=== PATIENT | female | born 1955 | race Caucasian/White ===

== ENCOUNTER 2016-11-07 15:15 | Inpatient (IN) | payer BC ==
[~2016-11-07] VITALS: Ht 175.3 cm; Wt 116.3 kg
--- NOTE | ~2016-11-07 | DS ---
PATIENT'S NAME: SAAD DUNN [facility] AGE: 61 Y [address] ROOM: [address] [address] LOCATION: [facility] ADMIT DATE: 11/07/2016 Discharge Summary DISCHARGE DATE: 11/10/2016 FAMILY PHYSICIAN: Irving Cordero MD ATTENDING PHYSICIAN: Sonu Hay ADMISSION MAIN DIAGNOSIS: Brain tumor (anterior corpus callosum, bilateral frontal lobes). DISCHARGE MAIN DIAGNOSIS: Brain tumor (anterior corpus callosum, bilateral frontal lobes). PROCEDURES DURING ADMISSION: Right frontal campos hole and stereotactic biopsy of brain tumor. COMPLICATIONS DURING ADMISSION: None. DISCHARGE INSTRUCTIONS AND FOLLOWUP APPOINTMENTS: 1. Myself on 11/20/2016, for staple removal. 2. Call my office or seek immediate medical attention if having increasing headache, vomiting, nausea, or any new neurologic symptoms. 3. The patient may wash her head on postoperative day 5. MEDICATIONS ON DISCHARGE: 1. Resume all pre-admission medications except ibuprofen. 2. Dexamethasone 3 mg p.o. t.i.d. 3. Zofran 4-8 mg p.o. every 8 hours p.r.n. 4. Tramadol 50 to 100 mg p.o. every 6 hours p.r.n. 5. Keppra 500 mg p.o. b.i.d. HOSPITAL COURSE: The patient is a 61-year-old female patient, who was admitted to the hospital after a noncontrast CT head showed evidence of large anterior corpus callosum and bilateral frontal lobes brain tumor. 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 The patient was started on dexamethasone. The patient then underwent the above-mentioned surgery to confirm the diagnosis. The preliminary pathology assessment was consistent with high-grade glioma. The patient tolerated the operation very well. She had no new neurologic deficits. On the day of discharge, the patient was examined. She remained neurologically intact. She was complaining of mild surgical pain. Her incision was healing very well. She also had postoperative CT scan and that showed satisfactory biopsy result and a small amount of intraventricular hemorrhage in the right lateral ventricle close to the tumor. I reviewed the PATIENT'S NAME: SAAD DUNN [facility] AGE: 61 Y [address] ROOM: [address] [address] LOCATION: [facility] ADMIT DATE: 11/07/2016 Discharge Summary DISCHARGE DATE: 11/10/2016 FAMILY PHYSICIAN: Irving Cordero MD ATTENDING PHYSICIAN: Sonu Hay discharge instructions with the patient. Based on my assessment today, I think this patient can be discharged home today. MD YAMILETH ROWLAND/leatha /[id number] CC: Omari Dennison MD, PhD MD Irving Russo MD d: 11/11/16 0432 t: 11/11/16 1157, DISCHARGE SUMMARY
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
--- NOTE | ~2016-11-07 | HP ---
[facility] 61 Y [address] ROOM: [place] [address] LOCATION: [facility] ADMIT DATE: 11/07/2016 History & Physical DISCHARGE DATE: FAMILY PHYSICIAN: Irving Cordero MD ATTENDING PHYSICIAN: CARSON EID DATE OF SERVICE: 11/07/2016 CHIEF COMPLAINT: Brain tumor, confusion. HISTORY OF PRESENT ILLNESS: The patient is a 61-year-old, right-handed female patient, who was assessed at [place] [facility] today for feeling unwell. The patient had a noncontrast CT head and that revealed evidence of bilateral frontal lobe edema due to abnormal mass in the anterior part of the corpus callosum. I was contacted and reviewed the imaging. I recommended transferring the patient over for further investigations and management. I met the patient in the key. She was accompanied by her family. The patient indicated that she has been feeling unwell for about a week. She denied headaches, visual disturbances, weakness in her hands, feet, seizures, nausea, or vomiting. She never experienced similar symptoms before. She denied unsteady gait, falls. She denied fever, chills. PAST MEDICAL AND SURGICAL HISTORY: History of uterine cancer for which she had surgery and postoperative radiation. MEDICATIONS: Listed in the patient's chart. ALLERGIES: SULFA. SOCIAL HISTORY: The patient is and lives in [place]. She denies smoking and alcohol drinking. FAMILY HISTORY: Noncontributory to the patient's presentation. REVIEW OF SYSTEMS: All points review of systems were asked about. Pertinent positives were mentioned in the HPI. PATIENT'S NAME: SAAD DUNN [facility] AGE: 61 Y [address] ROOM: [place] [address] LOCATION: [facility] ADMIT DATE: 11/07/2016 History & Physical DISCHARGE DATE: FAMILY PHYSICIAN: Irving Cordero MD ATTENDING PHYSICIAN: CARSON EID PHYSICAL EXAMINATION: GENERAL: The patient is cooperative and pleasant. HEENT: atraumatic. Sclerae are normal. NECK: She has painless range of motion. No tenderness to palpation. RESPIRATORY: She is not in any respiratory distress. CARDIOVASCULAR: She has palpable pulses in the upper extremities. GAIT: Not done. BACK: Not done. MUSCULOSKELETAL: She has no evidence of muscle wasting. NEUROLOGIC: She is alert and oriented to time, place, and person. She follows 1 and 2 step commands. Pupils are 3 mm and reactive. Face is symmetric. She has no evidence of pronator drift. Cerebellar examination including [id number]-[id number] testing is negative. Sensory examination of the upper and lower extremities is unremarkable. IMAGING STUDIES: Investigations: A noncontrast CT head done in [place] which I personally reviewed. It showed evidence of heterogeneous mass centered in the genu of the corpus callosum and involving the right and left frontal lobes, and causing significant vasogenic edema in the frontal lobes, more on the left side. The imaging features are very concerning for primary brain tumor, high- grade glioma (butterfly glioblastoma). IMPRESSION AND PLAN: A 61-year-old female patient is presenting with 1-week history of feeling unwell, was found on CT scan to have heterogeneous mass in the genu of the corpus callosum causing significant vasogenic edema in the frontal lobes. The imaging features are concerning for high-grade glioma. Plan: 1. Dexamethasone 10 mg loading dose, then 4 mg every 6 hours. 2. MRI brain without and with contrast to better assess the tumor. I reviewed the imaging with the patient and her family and pointed out the abnormalities seen. I then discussed the different pathologies that may have similar radiologic features. I then discussed my plan with them. I will meet with the patient again after the MRI is completed to further discuss treatment options. It was pleasure taking care of this patient and thanks for having us involved. CARSON EID MD PATIENT'S NAME: SAAD DUNN [facility] AGE: 61 Y [address] ROOM: [place] [address] LOCATION[facility] ADMIT DATE: 11/07/2016 History & Physical DISCHARGE DATE: FAMILY PHYSICIAN: Irving Cordero MD ATTENDING PHYSICIAN: CARSON EID/leatha /[id number] CC: Irving Cordero MD D: [id number] T: [id number] HISTORY & PHYSICAL
--- NOTE | ~2016-11-07 | OR ---
PATIENT'S NAME: SAAD DUNN [facility] AGE: 61 Y [address] ROOM: [place] [address] LOCATION: [facility] ADMIT DATE: 11/07/2016 OR/Procedure Report DISCHARGE DATE: FAMILY PHYSICIAN: Irving Cordero MD ATTENDING PHYSICIAN: SONU HAY SURGEON: Sonu Hay MD TRANSPORTATION AGENT: DATE OF PROCEDURE: 11/09/2016 ANESTHESIOLOGIST: Naresh Cook M.D. ANESTHESIA: General. COMPLICATIONS: None. ESTIMATED BLOOD LOSS: Minimal. PREOPERATIVE DIAGNOSIS: Corpus Callosum/Bifrontal brain tumor. POSTOPERATIVE DIAGNOSIS: Corpus Callosum/Bifrontal brain tumor. PROCEDURE: Stealth-guided right frontal bur hole and stereotactic biopsy of Corpus Callosum/bifrontal brain tumor. CLINICAL HISTORY: The patient is a 61-year-old female patient who was diagnosed on a CT scan and then MRI to have a very large enhancing brain tumor centered in the corpus callosum and the mesial aspect of the frontal lobes with features consistent with a high-grade glioma. The patient was admitted and started on dexamethasone. I discussed the treatment options. I recommended stereotactic biopsy to confirm the diagnosis. I discussed the procedure itself, the benefits, and all the risks associated with it. The patient was interested in proceeding with surgery, so she was brought in for the operation. DESCRIPTION OF PROCEDURE: The patient was seen in the preoperative care unit and the correct side was marked. Then, she was transferred to the main operating theater, was given general anesthetic, and underwent endotracheal intubation without complications. Preoperative antibiotics, steroids were given. Calf compressors were used throughout the procedure. The patient was then positioned supine on the table and all her joints and bony prominences were securely padded. The patient's head was clamped in 3 pins Campbell and secured to the table. Then, the patient was registered to the [employer] navigation system with good accuracy. I then navigated the entry point on the right frontal scalp and based on that, a linear incision was marked. Hair overlying it was clipped off. The surgical site was prepped and draped. PATIENT'S NAME: SAAD DUNN [facility] AGE: 61 Y [address] ROOM: [place] [address] LOCATION: [facility] ADMIT DATE: 11/07/2016 OR/Procedure Report DISCHARGE DATE: FAMILY PHYSICIAN: Irving Cordero MD ATTENDING PHYSICIAN: SONU HAY The proposed skin incision was infiltrated with 0.25% Marcaine with epinephrine. Skin was sharply opened down to the bone, then a high-speed Midas Srinivasan drill was brought in and one bur hole was fashioned down to the dura. The dura was opened and coagulated. The frontal lobe cortex was coagulated and incised. Then, using the [employer] Navigus stereotactic biopsy system, the trajectory was confirmed. Then, a stealth-guided stereotactic biopsy needle was inserted under the guidance of Stealth Navigation System to the target point. Then, multiple specimens were obtained and those were sent out for frozen section. Later on, I was called by the pathologist and he confirmed obtaining neoplastic tissue with features consistent with a high- grade glioma. I had no complications during the biopsy. I was satisfied with the diagnosis. Further specimens were obtained and sent out for permanent pathological analysis. The biopsy needle and the Navigus system were removed without complications. Gel-Foam was placed in the bur hole. The bur hole was covered with titanium plate and screws. The wound was irrigated with bacitracin-containing irrigation. The wound was then closed in layers with 2- 0 Vicryl to the galea and sai to the skin. Sterile dressing was applied. At the end of the operation, the instrument and sponge counts were correct. The patient tolerated the operation without complications. SONU HAY MD AB/modl /[id number] CC: Irving Cordero MD d: 11/10/16 0232 t: 11/10/16 1446, OPERATIVE SUMMARY
--- NOTE | ~2016-11-07 | CON ---
PATIENT'S NAME: SAAD GARCIA [facility] AGE: 61 Y [address] ROOM: [address] [place], [place] [address] LOCATION: [facility] ADMIT DATE: 11/07/2016 Consultation DISCHARGE DATE: 11/10/2016 FAMILY PHYSICIAN: Irving Cordero MD ATTENDING PHYSICIAN: Sonu Hay REFERRING PHYSICIAN: Jodi Walter MD Consult to Dr. Rosa Hay. Saad Garcia is a 61-year-old woman with an uncharacterized brain mass. The history of present illnessis obtained from Mrs. Garcia who is a good historian; Mr. Garcia and their daughter; and review of the [facility] record. Mrs. Garcia was in her normal state of health until 2-3 months ago, early 2016. She lived in [place], [place] with her . 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 She had no formal exercise program, but no formal limits. In early 2016, the patient developed progressive fatigue. She was still able to discharge her responsibilities at work, but was less likely to do the housework by the time was admitted to the hospital. Two and a half weeks ago, the family noted that she was "not tracking well." When they would visit with her, she would not respond and acted like she had not heard the questions. Five days prior to admission, on or around 11/01/2016, the patient had difficulty standing because her legs were weak. She had no focal weakness. The patient experienced no falls and did work. 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 Mrs. Garcia's found her early a.m. on 11/07/2016. The patient needed standby assist at that point, although she had been able to take care of herself and work up to 11/06/2016. The patient was transported to the [facility]. Dr. Elizabeth saw the patient and documented the presence of bilateral frontal lobe edema due to a mass in the anterior part of the corpus callosum with a head CAT scan. Dr. Hay took the patient in transfer and hospitalized her on 11/07/2016. Upon admission, the white count was 9700, the hemoglobin 13.4, the MCV was 90, and the platelets were 228,000. The patient had 79% neutrophils and 13% lymphocytes. The general chemical profile was just remarkable for a sodium of 146 mg/dL and a potassium of 3.4 mg/dL. An MRI of the brain revealed a 5.5 cm enhancing mass centered in the anterior aspect of the corpus callosum extending into both frontal lobes. Multiple additional smaller areas of enhancement were present involving the body of the corpus callosum more PATIENT'S NAME: SAAD GARCIA [facility] AGE: 61 Y [address] ROOM: [address] [address] [place] [facility] [place] ADMIT DATE: 11/07/2016 Consultation DISCHARGE DATE: 11/10/2016 FAMILY PHYSICIAN: Irving Cordero MD ATTENDING PHYSICIAN: Sonu Hay posteriorly as well as the posterior frontal lobe. Extensive adjacent edema was present. Local mass effect was present with effacement of adjacent cortical sulci and effacement of the frontal horns of the lateral ventricles. There was no associated hemorrhage or hydrocephalus. The findings were compatible with glioblastoma multiforme. Dr. Hay initiated dexamethasone and the patient's symptoms, such as they were, have improved. Dr. Hay took the patient to the surgical suite on 11/09/2016 and performed a stealth-guided right frontal campos hole and stereotactic biopsy of bifrontal brain tumor. The pathology is pending. Mrs. Garcia has a history of endometrial cancer which was first symptomatic with uterine bleeding in 2012. The patient believes the uterine cancer was endometrial carcinoma, endometrioid type. She recalls the tumor was stage I. She does not recall the grade of the tumor. She recalls Dr. Mira Rodrigez performed a total abdominal hysterectomy and bilateral salpingo-oophorectomy for this in the summer of 2012. The patient then received adjuvant external beam radiation and endovaginal radiation therapy as well. The patient has undergone surveillance exams with Dr. Rodrigez and now needs these once every 6 months. The patient's appetite has fallen for 1-1/2 weeks and she estimates she has lost 20 pounds. She has also developed mild urinary incontinence over the last 2 weeks. ACTIVE MEDICAL PROBLEMS, CHRONIC AND DIAGNOSED: 1. Early left cataract. 2. Class II obesity. The BMI 38.2 kg/m2. 3. 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 4. Tobacco use, and the patient smoked 1-1/2 pack per day of cigarettes for 30 years, but has abstained since 1997. ACUTE MEDICAL ILLNESSES (RESOLVED), PAST SURGERIES, INJURIES: 1. 1963, tonsillectomy. 2. 4132-1661: G2, P2, AB0. 3. 1985-hospitalization with preeclampsia. 4. 2012-uterine cancer, exact histology and stage currently unknown to us. This is probably a uterine adenocarcinoma. The patient reported with vaginal bleeding and was evaluated by Agnes Cordero APRN. Dr. Mira Rodrigez performed a total abdominal hysterectomy and bilateral salpingo- oophorectomy. The patient believes she had stage I disease, but the grade is indeterminate. She received adjuvant external beam radiation and endovaginal radiation. MEDICATIONS: PATIENT'S NAME: SAAD GARCIA [facility] AGE: 61 Y [address] ROOM: [place] [address] LOC[place] [facility] [place] ADMIT DATE: 11/07/2016 Consultation DISCHARGE DATE: 11/10/2016 FAMILY PHYSICIAN: Irving Cordero MD ATTENDING PHYSICIAN: Sonu Hay Upon admission, none. Medications at present: 1. Dexamethasone 1 mg p.o. t.i.d. 2. Docusate sodium 100 mg p.o. daily. 3. Famotidine 20 mg daily. 4. Probiotic 1 cap every daily. 5. Levetiracetam 500 mg p.o. b.i.d. 6. Ondansetron 4 mg p.o. every 8 hours. 7. Tramadol 50 mg every 6 hours. ADVERSE REACTIONS TO MEDICATIONS, TRANSFUSIONS, ALLERGIES: Sulfa leads to "anaphylaxis." TOBACCO: 1 pack per day for 30 years, quit for 25 years. ALCOHOL: 6 packs a week. CAFFEINE: 32 ounces of tea per day. FAMILY HISTORY: The patient was adopted. SOCIAL HISTORY: The patient was born in [place], [place], but was raised an [facility]. Following graduation, she attended [employer] for a year and a half. 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 They . They have a son in [place], [place] and a daughter in [place], [place]. They are members of the [employer]. REVIEW OF SYMPTOMS: 1. The patient has a bowel movement every 3 days, they are hard. There has been no change in her bowel habits for a decade. She has never had a colonoscopy. 2. Tachypalpitations for 5 years. She has had no associated symptoms and she has not visited with Dr. Cordero about this to the point where procedures have been scheduled. PHYSICAL EXAMINATION: VITAL SIGNS: Pulse 68 and regular, blood pressure 100/55, respiratory rate 14, temperature 98.2, and SpO2 94% on room air. Height 69 inches, weight PATIENT'S NAME: SAAD GARCIA [facility] AGE: 61 Y [address] ROOM: [place] [address] LOC[place]: [facility] [place] ADMIT DATE: 11/07/2016 Consultation DISCHARGE DATE: 11/10/2016 FAMILY PHYSICIAN: Irving Cordero MD ATTENDING PHYSICIAN: Sonu Hay 117.5 kg (259 pounds). BMI 38.2 kg/m2. GENERAL: Well-developed, obese, 61-year-old female, in no acute distress. HEENT: A healed scar over the right frontal lobe. Lymph nodes not palpable. NECK: Without JVD or carotid bruits. CHEST: Clear. CV: Regular rhythm. No murmurs, bruits, or adventitious sounds. BREASTS: Not examined. ABDOMEN: No masses, tenderness, or megaly. Garcia angiomas in place. GENITALIA: Not examined. RECTAL: Not examined. EXTREMITIES: Upper extremities without peripheral edema. Compression devices present. IMPRESSION: 1. A 61-year-old female with a 3-month history of fatigue, then inappropriate and unusual behavior, then mild disequilibrium with a 5.5 cm bifrontal mass in the corpus callosum with extensive adjacent edema, etiology indeterminate. 2. This is probably a primary glioblastoma multiforme, but we need to keep the patient's endometrial cancer in mind as well. 3. The patient does not need to be in the hospital, but our further diagnostic and therapeutic regimens recommendations will depend wholly on the tissue. RECOMMEND: Diagnostic: 1. Return to see Dr. Larson or Dr. Walter on 11/20/2016 when the biopsy results should be in hand. 2. No other diagnostic tests at this point. Treatment: 1. Continue dexamethasone at a tapering dose. 2. Continue other medications. Patient education: 1. Made the point that our impressions and recommendations as well as her prognosis will depend on the tissue. 2. Discussed the differential diagnosis which includes a primary brain tumor, metastatic endometrial cancer, and possibly a new tobacco-related cancer. We did not talk about potential treatments for each of the possibilities as most of the topics we covered would be moot. 3. Made arrangements for her to return to our office on 11/20/2016. PATIENT'S NAME: SAAD GARCIA [facility] AGE: 61 Y [address] ROOM: [place] [address] [place] [facility] [place] ADMIT DATE: 11/07/2016 Consultation DISCHARGE DATE: 11/10/2016 FAMILY PHYSICIAN: Irving Cordero MD ATTENDING PHYSICIAN: Sonu Hay MD GKB/modl /[id number] CC: MD Irving Downing MD Fishel Z Liberman, MD, PhD d: 11/10/160 t: 11/15/16 1324, CONSULTATION REPORT
[2016-11-07] MEDS ORDERED: MOTRIN600 MG PO (17:13)
[2016-11-07] MEDS ORDERED: COLACE100 MG PO (17:13)
[2016-11-07 17:14] LABS: BASOPHIL % 0.4 %; EOSINOPHIL % 0.1 %; HEMATOCRIT 41.1 % (33.0-46.0); HEMOGLOBIN 13.4 g/dL (10.0-15.0); IMMATURE GRANULOCYTE % 0.4 %; LYMPHOCYTE # 1.3 K/uL (0.8-4.0); LYMPHOCYTE % 13.3 %; MCH 29.5 pg (27.0-34.0); MCHC 32.6 gm/dL (32.0-36.5); MCV 90.5 fl (83.0-98.0); MONOCYTE # 0.7 K/uL (0.0-1.0); MPV 8.8 fl (9.4-12.4); NEUTROPHIL # (ANC) 7.6 K/uL (1.8-7.8); NEUTROPHIL % 78.8 %; NRBC % 0 /100WBC (0-0.00); PLATELET COUNT 228 K/uL (150-450); RBC 4.54 M/uL (3.50-5.50); RDW-CV 13.1 % (11.9-14.6); WBC 9.7 K/uL (4.0-11.0)
[2016-11-07] MEDS ORDERED: PROBIOTIC1 EACH PO (17:14)
[2016-11-07 17:23] LABS: PROTIME 10.7 SECONDS (9.6-11.1); PTT 24 SECONDS (25-32)
[2016-11-07 17:30] LABS: ALBUMIN 3.7 gm/dL (3.5-5.0); ALK PHOS 88 IU/L (33-138); ALT 35 IU/L (12-78); ANION GAP 11.4 (10.0-19.0); AST 32 IU/L (10-40); BLOOD UREA NITROGEN 19 mg/dL (6-24); CALCIUM 8.8 mg/dL (8.5-10.5); CHLORIDE 108 mMol/L (96-110); CO2 30 mMol/L (22-32); CREATININE 0.9 mg/dL (0.5-1.1); POTASSIUM 3.4 mMol/L (3.7-5.1); TOTAL BILIRUBIN 0.7 mg/dL (0.0-1.5); TOTAL PROTEIN 7.5 g/dL (6.0-8.4)
[2016-11-07 17:49] LABS: SODIUM 146 mMol/L (135-145)
[2016-11-07 17:52] LABS: ESTIMATED GFR (MDRD EQUATION) > 60
--- NOTE | 2016-11-07 19:06 | NUR ---
PATIENT DIRECT ADMIT AT 16:15 TO PCU. PATIENT HAS NO C/O PAIN. PATIENT HAS SHORT TERM MEMORY DEFICIT AND GENERALIZED WEAKNESS, ESPECIALLY WHEN ATTEMPTING TO STAND. VITALS STABLE, SATS HIGH 90'S ON RA. FAMILY AT BEDSIDE, ASSISTING WITH OBTAINING PATIENT'S MEDICAL HISTORY. REVIEWED CALL LIGHT WITH PATIENT AND FAMILY, REINFORCED NOT TO GET OUT OF BED WITHOUT ASSISTANCE FROM STAFF.
--- NOTE | 2016-11-08 04:16 | NUR ---
Significant Event: Patient's VSS on RA. A/Ox3 but does have some kind of delay. When asked to do something, patient will space out at times. She will respond that she will do what you ask, but will just stare. When patient was up to the bathroom, she was having difficulty standing up. Stating that her feet felt like they were asleep. Family said she has been spacey the past 8 or 9 days. Does not usually have difficulty standing up from bathroom, but did have difficulty at home this morning getting up from toilet. MRI done twice due to IV contrast infiltration from first MRI, patient did not receive any contrast into her vasculature the first time, so test had to be repeated. Results not yet posted. New IV started in R) antecubital. Flushes well with good blood return. Follow up: Continue plan of care.
--- NOTE | 2016-11-08 16:52 | NUR ---
Significant Event: AOx3, slow to respond. Agrees and/or states she will do something but then doesn't move to do it. Pleasant and cooperative. SBP 110s-130s, temp to 99.1 x1, room air. Lungs had fine crackles this a.m. and cleared this afternoon after being up to shower. Incontinent of urine, though also has verbalized needing to use restroom. SL to R) AC is patent. Lots of family visiting today. Follow up: Plan for biopsy in a.m. with Dr Hay, NPO at midnight. IV fluids to be started at midnight.
--- NOTE | 2016-11-09 04:30 | NUR ---
Significant Event: Patient A/Ox3. VSS on RA. Patient appears to be doing better this shift. No issues standing up off of the toilet today. Quicker to respond to requests to do things. Dr. Hay did call to say that the biopsy was moved to 1700, so patient is not NPO until 0800 and NS should be started at 75ml/hr at that time. Patient was informed and will order breakfast right at 0700. Follow up: Biopsy this afternoon.
--- NOTE | 2016-11-09 13:38 | NUR ---
Introduced self and care management services to patient, spouse and daughter at bedside. Lives in [place]. Too soon to know what dc needs will be, hoping will just be able to go home on discharge and not need anything. Cooker [employer]rup will follow and assist with dc planning as needs identified.
--- NOTE | 2016-11-09 15:56 | NUR ---
Significant Event: AOx3, slow to respond at times, does express humor today. Stands much easier with minimal assist, steady on feet. Strength equal bilat. SBP 110s-150s, VS otherwise WNL on RA. Ate breakfast, then NPO since 0800 for surgery at 1700. Incontinent of urine but also occasionally voices need to void. PIV to L) AC infusing without complication. Very pleasant and cooperative. Family at bedside is supportive. Follow up: Per plan of care post-op.
--- NOTE | 2016-11-10 04:35 | NUR ---
Significant Event: Patient alert and oriented x 3. Denies pain, numbness, tingling, or change in vision. Moves spontaneously and to command. PERRL. Equal and strong strengths. 2+ pulses. NSR. Goal for SBP < 140. On room air. Lungs clear. Voids without difficulty. Bowel sounds active. SBA, gait belt. Has tolerated liquids. IV to left forearm infusing NS at 75 mL/hr without difficulty-may SL when PO well. IV to right AC SL with no complications. Pleasant and cooperative with cares. Daughter at bedside. Afebrile. SCDs in place. Dressing to head dry and intact. Glasses at bedside. Follow up: NVS Q2H, CT of head this AM, home today
[2016-11-10] MEDS ORDERED: KEPPRA500 MG PO (09:48)
[2016-11-10] MEDS ORDERED: PEPCID20 MG PO (09:48)
[2016-11-10] MEDS ORDERED: TYLENOL325 MG PO (09:49)
[2016-11-10] MEDS ORDERED: DECADRON1 MG PO (09:50)
[2016-11-10] MEDS ORDERED: ZOFRAN4 MG PO (09:51)
[2016-11-10] MEDS ORDERED: ULTRAM50 MG PO (09:51)
--- NOTE | 2016-11-10 14:31 | NUR ---
ALL BELONGINGS GATHERED AND SENT WITH PATIENT. IV'S DC'D. DISCHARGE INFO REVIEWED WITH PATIENT, , AND DAUGHTER. NO FURTHER QUESTIONS AT THIS TIME. TAKEN TO FRONT LOBBY BY JEVON.
--- NOTE | 2016-11-20 12:27 | NUR ---
Post discharge follow up. Visited with patient while at [facility] for radiation consult. Patient doing well. No questions or concerns at this time.
== END 2016-11-10 14:23 | disposition disaster alternative care site (69) | DRG 54 ==
LOC: GPCU 15:48 → GNTU 11-09 21:06
PROVIDERS: ADMIT Neurological Surgery
PROC: 00B73ZX Excision of Cerebral Hemisphere, Percutaneous Approach, Diagnostic (ICD-10-PCS; principal; 2016-11-10)
DX: C71.0 Malignant neoplasm of cerebrum, except lobes and ventricles (principal); G93.6 Cerebral edema; C71.1 Malignant neoplasm of frontal lobe; D49.6 Neoplasm of unspecified behavior of brain; R41.0 Disorientation, unspecified; W19.XXXA Unspecified fall, initial encounter; Z92.3 Personal history of irradiation; Z87.891 Personal history of nicotine dependence; Z85.42 Personal history of malignant neoplasm of other parts of uterus
CPT/HCPCS: A9577; C1713; C1751; J0690; J1100; J2250; J2405; J7030

== ENCOUNTER → 2017-02-19 | Outpatient (CLI) | payer BC ==
[~2017-02-19] MED LIST: COLACE100 MG PO; DECADRON1 MG PO; KEPPRA500 MG PO; MOTRIN600 MG PO; PEPCID20 MG PO; PROBIOTIC1 EACH PO; TYLENOL325 MG PO; ULTRAM50 MG PO; ZOFRAN4 MG PO
== END | disposition disaster alternative care site (69) ==
LOC: GRAD 11:00
DX: M79.1 Myalgia (principal); C71.1 Malignant neoplasm of frontal lobe; C71.8 Malignant neoplasm of overlapping sites of brain; E66.01 Morbid (severe) obesity due to excess calories; W19.XXXA Unspecified fall, initial encounter

== ENCOUNTER → 2017-02-24 | Outpatient (CLI) | payer BC | END | disposition disaster alternative care site (69) | LOC: GRAD 14:57 | DX: C71.1 Malignant neoplasm of frontal lobe (principal); C71.8 Malignant neoplasm of overlapping sites of brain; E66.01 Morbid (severe) obesity due to excess calories; I51.7 Cardiomegaly; R51 Headache ==

== ENCOUNTER 2017-02-26 11:16 | Inpatient (IN) | payer BC ==
[~2017-02-26] VITALS: Ht 177.8 cm; Wt 126.8 kg
--- NOTE | ~2017-02-26 | ER ---
PATIENT'S NAME: SAAD DUNN [facility] AGE: 61 Y [address] ROOM: [place] [address] LOCATION: [facility] ADMIT DATE: 02/26/2017 ER/Outpatient Report DISCHARGE DATE: FAMILY PHYSICIAN: Irving Cordero MD ATTENDING PHYSICIAN: CARSON HAY TIME OF ARRIVAL: 11:16. TIME SEEN: 11:45. IDENTIFICATION: A 61-year-old female. CHIEF COMPLAINT: Seizure. HISTORY OF PRESENT ILLNESS: The patient is a 61-year-old female who has a glioblastoma and has undergone combined chemotherapy and radiation therapy, which was unsuccessful. She had a MRI done on February 24, showing necrosis of the tumor as well as new onset communicating hydrocephalus and was scheduled to see Dr. Hay for shunting. Today, she was according to her family just staring, did not know anyone and making repetitive motions with her mouth. The patient had a similar episode 2 weeks ago. She has been on Keppra 500 mg b.i.d., she did take a dose this morning. Last week with that episode, she had a UTI. On arrival here to the ER, the patient did respond to questions, but slowly. She denies headache. The patient was incontinent of urine. ALLERGIES: SULFA. CURRENT MEDICATIONS: 1. Colace 100 mg 4 times daily. 2. Dexamethasone 2 mg 1-1/2 tablet 3 times daily. 3. Famotidine 20 mg daily. 4. Keppra 500 mg b.i.d. 5. Spironolactone 25 mg b.i.d. 6. Tramadol p.r.n. 7. Zofran p.r.n. PAST MEDICAL HISTORY: Medical Problems: 1. Butterfly glioblastoma undergoing chemoradiation which has been PATIENT'S NAME: SAAD DUNN [facility] AGE: 61 Y [address] ROOM: [place] [address] LOCATION: [facility] ADMIT DATE: 02/26/2017 ER/Outpatient Report DISCHARGE DATE: FAMILY PHYSICIAN: Irving Cordero MD ATTENDING PHYSICIAN: CARSON HAY unsuccessful. 2. 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 3. History of endometrial cancer, status post hysterectomy in 2012. PAST SURGICAL HISTORY: Prior Surgeries: Hysterectomy, stealth-guided frontal campos hole and stereotactic biopsy of frontal brain tumor. SOCIAL HISTORY: The patient is . She lives in [place]. Tobacco use, 1-1/2 pack per day for 30 years, quit in 1997. Alcohol use, one beer per day. Drug use, denies. REVIEW OF SYSTEMS: All systems were reviewed and negative other than what is noted in the HPI. PHYSICAL EXAMINATION: VITAL SIGNS: Height 5 feet 10 inches and weight 125.2 kg. Blood pressure 126/85, pulse 75, respirations 16, temperature 98, and saturations 92%. GENERAL: A pleasant female, in no acute distress. HEENT: Unremarkable other than healed right frontal scar. Eyes: Pupils are equal and reactive to light and accommodation. Extraocular movements intact. Nose: Mucosa pink. No lesions. Mouth: No lesions. Pharynx benign. NECK: Supple. No lymphadenopathy. LUNGS: Clear to auscultation. Breath sounds are equal. HEART: Regular rate and rhythm. No murmur, rub, or gallop. ABDOMEN: Bowel sounds present. Soft, nondistended, and nontender. SKIN: [place], warm, and dry. No lesions or rashes noted. NEUROLOGIC: The patient is alert and oriented. She has no focal deficit at this time, other than she does have some lower extremity weakness which is not new. She also has bilateral lower extremity edema, 2+. No calf tenderness. IMAGING DATA: The patient underwent a noncontrast head CT [facility] protocol with Dr. Bharti field protocol. She is now complaining of some lumbar spine pain, so we did do a lumbar spine CT as well. UA is unremarkable. LABORATORY DATA: Sodium 141, potassium 3.8, chloride 105, CO2 of 26, BUN 27, and creatinine 0.7. Blood sugar 108. Liver enzymes normal. Magnesium 2.5. Hemoglobin 11.6, hematocrit 34.58, and platelets 116. Most recent platelet count 228 on November 07. White blood cell count 10.4 with 84% neutrophils. INR 1.04. One- view chest x-ray, no acute process. Pending Radiology over-read. PATIENT'S NAME: SAAD DUNN [facility] AGE: 61 Y [address] ROOM: [id number] [place] [id number] LOCATION: [facility] ADMIT DATE: 02/26/2017 ER/Outpatient Report DISCHARGE DATE: FAMILY PHYSICIAN: Irving Cordero MD ATTENDING PHYSICIAN: CARSON HAY Head CT without contrast, ventriculomegaly, and brain tumor. No appreciable changes versus MRI [address], severe L4-5 and L5-S1 facet degenerative changes. No acute findings. IMPRESSION: 1. Glioblastoma. 2. Communicating hydrocephalus. 3. Seizure. The patient is given [address] Hay contacted and consulted. Plans for admission for LOOM OPERATOR shunt. 4. Thromb[address]. [address]. Hay evaluated the patient in the emergency room and made arrangements for admission with hospitalist providing consultation. The patient had no further seizure activity. She remained stable throughout her stay here in the emergency room. ZEFERINO CARVER MD CAR/modl /[id number] d: 02/27/17 1748 t: 02/28/17 0834, OUTPATIENT REPORT
--- NOTE | ~2017-02-26 | CON ---
PATIENT'S NAME: SAAD DUNN [facility] AGE: 61 Y [address] ROOM: [place] [address] LOCATION: [facility]ICU ADMIT DATE: 02/26/2017 Consultation DISCHARGE DATE: FAMILY PHYSICIAN: Irving Cordero MD ATTENDING PHYSICIAN: CARSON HAY REFERRING PHYSICIAN: BORA WAY MD CHIEF COMPLAINT: Seizure. HISTORY OF PRESENT ILLNESS: A 61-year-old lady who was diagnosed with butterfly glioblastoma on stereotactic biopsy. She followed up with Dr. Larson, our oncologist, and have undergone chemoradiation since then. Today, she was following up with Dr. Larson and after that she was supposed to follow up with Dr. Hay while she had an episode of seizures in the parking lot. She was taken to the emergency department over there. On my encounter, she looks comfortable in bed, appears a little confused, but answering questions appropriately. When asked what happened today, she cannot answer that question. Part of the history was obtained from the daughter as well as . Daughter reported that she has not been tracking well in last couple of days and has been feeling weak. Have lack of attention and cannot hold a conversation and has been confused. On further inquiry, they did not report that she complained about any headache, any trouble with the eyes, any nausea, vomiting, chest pain, shortness of breath, abdominal pain, but did endorse that she had leg swelling. REVIEW OF SYSTEMS: All other systems reviewed and were negative except what is mentioned in the HPI. PAST MEDICAL HISTORY: 1. Butterfly glioblastoma, high-grade glioblastoma, per pathology, undergoing chemoradiation, moderate obesity. 2. History of uterine cancer for which she had surgery. MEDICATIONS: Please see MAR. ALLERGIES: ANAPHYLAXIS TO SULFA. SOCIAL HISTORY: Lives in [place]. No alcohol or drug abuse. Lives with . The patient was adopted. FAMILY HISTORY: Negative for CAD PHYSICAL EXAMINATION: PATIENT'S NAME: SAAD DUNN [facility] AGE: 61 Y [address] ROOM: [place] [address] LOCATION: GICU ADMIT DATE: 02/26/2017 Consultation DISCHARGE DATE: FAMILY PHYSICIAN: Irving oCrdero MD ATTENDING PHYSICIAN: CARSON HAY VITAL SIGNS: Within normal limits. GENERAL: No acute distress. Alert and oriented to one only. HEENT: Head: Atraumatic, normocephalic. Eyes: Nonicteric. No pallor. Oropharynx: Moist mucous membranes. CARDIOVASCULAR: S1, S2. No murmurs, gallops, or rubs. LUNGS: Clear to auscultation bilaterally. ABDOMEN: Obese, soft, nontender, and nondistended. Bowel sounds present. EXTREMITIES: A +1 extremity edema. PSYCH: Low mood and flat affect. NEURO: Equal strength 4/5 in all extremities. LYMPHATICS: No lymphangiitis or lymphadenopathy noted. ENDOCRINE: No thyromegaly or cushingoid features noted. LABORATORY DATA: Investigations done in the ER today included a CAT scan which showed ventriculomegaly and brain tumor. No appreciable changes versus MRI 2 days ago. Rest of the lab work including a CBC and BMP were unremarkable except platelets were low at 116. Urinalysis has been negative. ASSESSMENT: 1. Glioblastoma, butterfly, high-grade, WHO grade 4. 2. Hydrocephalus. 3. Morbid obesity. PLAN: On inquiry, she never had any chest pain. Does not have any cardiovascular risks. She in the recent past did not complain of any chest pain, shortness of breath on exertion. We will not advise any further cardiac workup per KAM and AHA recommendations. We will follow up in the perioperative period. DVT prophylaxis, SCDs. Chemical prophylaxis to be decided by Neurosurgery after the surgery. MD WOO DE JESUS/leatha /[id number] d: 02/27/17 0045 t: 03/08/17 0845, CONSULTATION REPORT
--- NOTE | ~2017-02-26 | OR ---
PATIENT'S NAME: SAAD DUNN [facility] AGE: 61 Y [address] ROOM: [place] [address] LOCATION: GICU ADMIT DATE: 02/26/2017 OR/Procedure Report DISCHARGE DATE: FAMILY PHYSICIAN: Irving Cordero MD ATTENDING PHYSICIAN: SONU HAY SURGEON: Sonu Hay MD HYPERBARIC NURSE: DATE OF PROCEDURE: 02/27/2017 ANESTHESIOLOGIST: Naresh Cook MD ANESTHESIA: General. COMPLICATIONS: None. ESTIMATED BLOOD LOSS: Minimal. PREOPERATIVE DIAGNOSIS: Butterfly glioblastoma, nonobstructive hydrocephalus. POSTOPERATIVE DIAGNOSIS: Butterfly glioblastoma, nonobstructive hydrocephalus. PROCEDURES PERFORMED: 1. Stealth navigation system. 2. Stereotactic placement of ventricular catheter. 3. Insertion of right ventriculoperitoneal shunt (valve used is Medtronic regular medium pressure valve). 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 She underwent stereotactic biopsy, which confirmed the diagnosis. She then received combined chemotherapy and radiation therapy. Recently, the patient was noticed to have increasing confusion, headaches, and weakness in her lower extremities. Her repeat brain MRI done on 02/24/2017 showed evidence of new-onset nonobstructive hydrocephalus. The patient also had a seizure yesterday on 02/26/2017. The patient presented to the emergency where she was examined. I recommended the above-mentioned surgery to treat hydrocephalus. I discussed the procedure itself, the benefits, and all the risks associated with it. The patient and her family were interested in proceeding so she was scheduled for surgery. DESCRIPTION OF PROCEDURE: The patient was seen in the preoperative care unit and the correct side was marked. Then, she was transferred to the main operating theater, was given general anesthetic, and underwent endotracheal intubation without complications. Preoperative antibiotics were given. Isai PATIENT'S NAME: SAAD DUNN [facility] AGE: 61 Y [address] ROOM: [place] [address] LOCATION: CU ADMIT DATE: 02/26/2017 OR/Procedure Report DISCHARGE DATE: FAMILY PHYSICIAN: Irving Cordero MD ATTENDING PHYSICIAN: SONU HAY catheter, calf compressors were used throughout the procedure. The patient was positioned supine on the table and all her joints and bony prominences were securely padded. The patient's head was turned to the left side to expose the right parieto-occipital scalp. The hair overlying that region was clipped off. Then, the patient was registered to the OceanT[employer]er navigation system with good accuracy. Then I navigated the site for the bur hole on the scalp, and then I marked a question ignacio like incision around it. I also marked a transverse incision in the right paraumbilical region. The surgical sites were prepped and draped as per usual. The proposed skin incisions were infiltrated with 0.25% Marcaine with epinephrine. The abdominal incision was incised down to the subcutaneous tissue, and then using a monopolar cautery, I dissected through that down to the anterior rectus sheath which was incised. The rectus muscle fibers were retracted and posterior rectus sheath was identified. That was incised to enter the peritoneal cavity. Then, I proceeded to open the head incision. Skin was sharply opened down to the subcutaneous tissue. Then, monopolar cautery was used to dissect down to the subgaleal space. Subgaleal pouch for the valve was created. I then used the Stealth to navigate the site for the bur hole. Then, a high-speed Midas Srinivasan drill was brought in and one bur hole was fashioned down to the dura. The dura was coagulated and incised. Then, the distal catheter was tunneled from the head to the abdomen without any complications. A medium pressure valve was connected to the distal catheter and that was tied off with 2-0 silk. Then under the guidance of OceanTailer navigation system, a ventricular catheter was inserted to a depth of 6 cm and immediately, clear CSF escaped under moderate to high pressure. The catheter was advanced to a depth of 8 cm from the inner table. The catheter was then connected to the valve and that was tied off using 2-0 silk. The valve was then positioned in the subgaleal pouch. Then, the valve was anchored to the periosteum with 4-0 Nurolon. Immediately, we noticed spontaneous CSF drip from the distal catheter tip. Then, the distal catheter was inserted without any resistance into the peritoneal cavity. I was satisfied with all those steps. Then, I proceeded to closure. The abdominal cavity was irrigated with bacitracin-containing irrigation. The posterior rectus sheath was closed using 2-0 Vicryl. Anterior rectus sheath was closed using 2-0 Vicryl. Then, I used 2-0 Vicryl to close the subcutaneous tissue, and sai for the skin. Sterile dressing was applied. For the head incision, it was irrigated with bacitracin containing irrigation. The galea was closed with 2-0 Vicryl. The skin was closed with running 3-0 Prolene. Sterile dressing was applied. At the end of the operation, the instrument and sponge counts were correct. The patient tolerated the operation without any complications. PATIENT'S NAME: SAAD DUNN [facility] AGE: 61 Y [address] ROOM: [place] [address] LOCATION: [facility] ADMIT DATE: 02/26/2017 OR/Procedure Report DISCHARGE DATE: FAMILY PHYSICIAN: Irving Cordero MD ATTENDING PHYSICIAN: SONU HAY SONU HAY MD AB/modl /[id number] CC: MD Irving Varghese MD d: 02/27/17 1644 t: 02/28/17 1605, OPERATIVE SUMMARY
--- NOTE | ~2017-02-26 | HP ---
PATIENT'S NAME: SAAD DUNN [facility] AGE: 61 Y [address] ROOM: [address] [place], [place] [address] LOCATION: CU ADMIT DATE: 02/26/2017 History & Physical DISCHARGE DATE: FAMILY PHYSICIAN: Irving Cordero MD ATTENDING PHYSICIAN: CARSON EID DATE OF SERVICE: 02/26/2017 CHIEF COMPLAINT: Butterfly glioblastoma, status post chemotherapy, radiation therapy. New onset communicating/nonobstructive hydrocephalus. HISTORY OF PRESENT ILLNESS: The patient is a 61-year-old female patient, who is known to me. In November 2016, she was diagnosed with a butterfly glioblastoma. Stereotactic biopsy was done and that confirmed the diagnosis. She then underwent combined chemotherapy/radiation therapy, which was completed successfully. She has been followed by Dr. Larson, Oncology, and followup MRI was done on February 24, 2017 showed necrosis of the tumor as well as new onset communicating hydrocephalus. I was supposed to see the patient today in my office to discuss management of hydrocephalus. The patient was at Dr. Larson's office, and she was heading over to my office in the car, and according to the daughter, the patient had a staring spell. That spell lasted for less than a minute. She also noticed twitching of her mouth. There was no shaking of her hands or feet. After that, the patient was confused for 20 seconds. The patient was brought to the emergency where she was investigated and stabilized. I met the patient in the presence of her family in the emergency. They reported that the patient is having issues with confusion, memory loss, significant muscle wasting on the lower extremities, and urinary incontinence. They also indicated that the patient is still on dexamethasone 5 mg per day in divided doses. They denied tonic-colonic seizures. MEDICATIONS: Listed in the patient's chart. PHYSICAL EXAMINATION: GENERAL: The patient was cooperative and pleasant. HEAD: It showed a well-healed right frontal scar. EYES: Pupils were 3 mm and reactive. ABDOMEN: It showed evidence of previous scars from previous surgery. NEUROLOGIC: She was alert, oriented to time, place, and person. She followed 1 and 2 step commands. She named 3/3 objects. Her pupils were 3 mm and reactive. Face was symmetric. Motor examination on the upper extremities was unremarkable. Motor examination on the lower extremities showed severe PATIENT'S NAME: SAAD DUNN [facility] AGE: 61 Y [address] ROOM: [id number] [place], [place] [address] LOCATION: [facility] ADMIT DATE: 02/26/2017 History & Physical DISCHARGE DATE: FAMILY PHYSICIAN: Irving Cordero MD ATTENDING PHYSICIAN: CARSON EID proximal muscle weakness. Hip flexion was 1/5 bilaterally. Ankle dorsiflexion and plantar flexion was 5/5 bilaterally. MUSCULOSKELETAL: It showed evidence of significant pitting edema on the lower extremities +3. INVESTIGATIONS: 1. Brain MRI without and with contrast done on February 24, 2017, which I personally reviewed and compared to the previous MRI. It showed evidence of intratumor necrosis post radiation and chemotherapy. It showed decrease in the amount of bifrontal vasogenic edema. It showed evidence of new onset communicating hydrocephalus with evidence of transependymal flow. The hydrocephalus is new. 2. Noncontrast CT head done on February 26, 2017, which I personally reviewed. It showed no change in the size of the lateral ventricles. It showed no change in the size of the tumor. No evidence of hemorrhage. 3. Lumbar spine CT scan done on February 26, 2017, which I personally reviewed. It showed evidence of multilevel facet arthropathy but no evidence of fractures. IMPRESSION AND PLAN: A 61-year-old female patient, known to have butterfly glioblastoma, has new onset communicating hydrocephalus on repeat imaging. The patient does have symptoms of hydrocephalus. She is still on dexamethasone 5 mg a day in divided doses. Today, the patient also had a new onset seizure. She had a staring spell. Her examination in the emergency showed severe weakness on the lower extremities. RECOMMENDATIONS: 1. Admission to the hospital for ventriculoperitoneal shunt placement. 2. Increase Keppra to 1 g p.o. b.i.d. 3. Slowly wean the patient off dexamethasone. I reviewed the available imaging with the patient's family and discussed the findings with the patient. I clearly indicated that the repeat imaging did show evidence of communicating hydrocephalus, which can explain her confusion, weakness, and urinary incontinence. Given that, I recommended insertion of ventriculoperitoneal shunt. I discussed the procedure itself, the benefits, and all the risks associated with it especially the increased risk of infection given the longstanding steroid treatment. I also discussed hospital stay and recovery. The patient and her family asked appropriate questions, and those were answered to their satisfaction. The patient and the family were interested in proceeding with the surgery, so the patient was scheduled for surgery on February 27, 2017. PATIENT'S NAME: SAAD DUNN [facility] AGE: 61 Y [address] ROOM: [place] [address] LOCATION: [facility] ADMIT DATE: 02/26/2017 History & Physical DISCHARGE DATE: FAMILY PHYSICIAN: Irving Cordero MD ATTENDING PHYSICIAN: CARSON EID It was pleasure taking care of this patient and thanks for having us involved. Total time of encounter was 25 minutes, more than 50% of that time was spent on counseling. MD YAMILETH ROWLAND/modl /[id number] CC: MD Viral Marvin MD Cheryl A Roth, MD D: [id number] T: [id number] HISTORY & PHYSICAL
--- NOTE | ~2017-02-26 | CON ---
PATIENT'S NAME: SAAD DUNN [facility] AGE: 61 Y [address] ROOM: [place] [address] LOCATION: GICU ADMIT DATE: 02/26/2017 Consultation DISCHARGE DATE: FAMILY PHYSICIAN: Irving Cordero MD ATTENDING PHYSICIAN: CARSON HAY REFERRING PHYSICIAN: BORA WAY MD A consult for Dr. Hay. HISTORY OF PRESENT ILLNESS: This pleasant, 61-year-old lady is referred for rehab [facility] admission. She is now status post: 1. Stealth navigation system. 2. Stereotactic placement of ventricular catheter. 3. Insertion of right ventriculoperitoneal shunt done on 02/27/2017 to relieve hydrocephalus. She has past history definitive of corpus callosum/bifrontal brain tumor, status post stealth-guided right frontal campos hole and stereotactic biopsy of corpus callosum/frontal brain tumor on 11/09/2016, details on record. This was consistent with high-grade glioma. She was on dexamethasone and chemotherapy with radiation. She is diagnosed now with onset of communicating hydrocephalus, and she also possibly did suffer a spell of seizure disorder, details on history and physical. PHYSICAL EXAMINATION: NEUROLOGIC: At the present time, she is alert, oriented, can follow instructions without much difficulty. Tongue and soft palate are moving symmetrical. There is no weakness that I could detect, maybe a little bit on the left side in comparison to the right; however, she is doing well with muscle strength throughout at least of about 4/5. Her voice is clear and not wet. Tongue and soft palate are moving symmetrical. No facial droop at the present time. No visual cut. VITAL SIGNS: Blood pressure 133/81, temperature 98.7, pulse 89, respiration rate 20. She is 5 feet 10 inches and weighs 126.8 kg. MEDICATIONS: She is on the following medications: 1. Heparin sodium. 2. Zofran. 3. Reglan. PATIENT'S NAME: SAAD DUNN [facility] AGE: 61 Y [address] ROOM: [place] [address] LOCATION: GI ADMIT DATE: 02/26/2017 Consultation DISCHARGE DATE: FAMILY PHYSICIAN: Irving Cordero MD ATTENDING PHYSICIAN: CARSON HAY 4. Dilaudid. 5. Tylenol. 6. Apresoline. 7. Labetalol. 8. Keppra. 9. NaCl 0.9%.cefazolin. 10. Decadron. 11. Bumex. 12. Cefazolin. ASSESSMENT AND PLAN: I will start her on PT, OT, and speech, please see the orders. I plan to take her for intensive rehabilitation for about 2 to 3 weeks, aiming to discharge home on modified independence. If she is discharged before, she should not drive and/or operate any mechanical device until she is evaluated. Thank you for this referral. I did discuss all the above with her in detail. She verbalized understanding and agreement. I will take her whenever she is okayed by the admitting surgeon, Dr. Hay. MD MARY ADKINSS/modl /[id number] d: 03/01/17 1231 t: 03/01/17 1313, CONSULTATION REPORT
--- NOTE | ~2017-02-26 | DS ---
[facility] AGE: 61 Y [address] ROOM: [id number] [place], [place] [address] LOCATION: [facility] ADMIT DATE: 02/26/2017 Discharge Summary DISCHARGE DATE: 03/03/2017 FAMILY PHYSICIAN: Irving Cordero MD ATTENDING PHYSICIAN: Sonu Hay DISCHARGE/TRANSFER NOTE DATE OF TRANSFER: March 03, 2017. ADMISSION MAIN DIAGNOSES: 1. Nonobstructive hydrocephalus. 2. Butterfly glioblastoma, status post chemotherapy/radiation therapy. DISCHARGE MAIN DIAGNOSES: 1. Nonobstructive hydrocephalus. 2. Butterfly glioblastoma, status post chemotherapy/radiation therapy. PROCEDURE DURING ADMISSION: Insertion of right ventriculoperitoneal shunt. COMPLICATIONS DURING ADMISSION: None. DISCHARGE INSTRUCTIONS AND FOLLOWUP APPOINTMENTS: 1. The patient will be transferred to inpatient rehab to continue physical therapy, occupational therapy, and speech therapy. 2. Call my office for any concerns. 3. I will discontinue the head sutures and the abdomen asi on March 12, 2017. MEDICATIONS ON DISCHARGE: 1. Dexamethasone 3 mg p.o. once daily, stop on March 06; then dexamethasone 2 mg p.o. once daily, start on March 07 and stop on March 11; then dexamethasone 1 mg p.o. once daily. 2. Colace 100 mg p.o. b.i.d. p.r.n. 3. Lasix 20 mg p.o. once daily. 4. Heparin 7500 units subcu b.i.d. 5. Keppra 1 gram p.o. b.i.d. 6. Tramadol 50 to 100 mg p.o. every 6 hours p.r.n. 7. Zofran 4 to 8 mg p.o. every 8 hours p.r.n. 8. MiraLax 17 grams p.o. every day p.r.n. 9. Probiotic 1 cap p.o. once daily. 10. Pepcid 20 mg p.o. b.i.d. 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 The pathology was PATIENT'S NAME: [facility] AGE: 61 Y [address] ROOM: [id number] [place], [place] [address] LOCATION: [facility] ADMIT DATE: 02/26/2017 Discharge Summary DISCHARGE DATE: 03/03/2017 FAMILY PHYSICIAN: Irving Cordero MD ATTENDING PHYSICIAN: Sonu Hay confirmed by stereotactic biopsy. The patient was started on steroids and received chemotherapy and radiation therapy. She has been following with Medical and Radiation Oncology and recently it was noticed that she was having increasing confusion, significant weakness on her lower extremities, and dysphasia. Repeat MRI done on February 24, 2017, showed expected necrosis in the tumor, but showed evidence of new onset nonobstructive hydrocephalus. The patient was seen at the Oncology Clinic on February 26, 2017. She was supposed to see me in the office the same day, but unfortunately she had seizure at the medical oncologist's office, for which she was brought to the emergency. The patient was assessed and examined. Her Keppra dose was increased to 1 gram p.o. b.i.d. The patient was admitted to the hospital on February 26. She underwent the above-mentioned surgery on February 27, 2017, without any complications. Postoperatively, the patient did very well. Her mental status improved and the severe preoperative proximal muscle weakness on the lower extremities started to improve. She had postoperative noncontrast CT of the head and shunt series and those showed decrease in the size of the ventricles and no complications with the shunt tubing. The patient was also seen by the Hospitalist Team and she was started on diuretics. I also started tapering the patient off the dexamethasone to help with the lower extremities edema, proximal muscle weakness. I felt that this patient would benefit from inpatient rehabilitation. She was seen by them and felt that inpatient rehab is appropriate. On the day of transfer, the patient was examined. She continued to do well. She was alert and oriented. Her pupils were 3 mm and reactive. The surgical incisions were healing very well. The severe preoperative hip flexion weakness started to improve. She was able to flex both hips and yesterday the patient was mobilized by PT and OT. I reviewed the discharge instructions with the patient herself and the receiving physician and based on that, the patient was transferred to inpatient rehab. MD YAMILETH ROWLAND/modl /[id number] CC: MD Irving Varghese MD PATIENT'S NAME: SAAD DUNN [facility] AGE: 61 Y [address] ROOM: [place] [address] LOCATION: [facility] ADMIT DATE: 02/26/2017 Discharge Summary DISCHARGE DATE: 03/03/2017 FAMILY PHYSICIAN: Irving Cordero MD ATTENDING PHYSICIAN: Sonu Hay MD, PhD d: 03/04/17 0259 t: 03/04/17 1116, DISCHARGE SUMMARY
[2017-02-26 11:56] LABS: BILIRUBIN URINE NEGATIVE (NEGATIVE); BLOOD URINE 25 /UL (NEGATIVE); COLOR URINE YELLOW (YELLOW); GLUCOSE URINE NEGATIVE (NEGATIVE); KETONE URINE NEGATIVE (NEGATIVE); LEUKOCYTES URINE NEGATIVE /UL (NEGATIVE); NITRITE URINE NEGATIVE (NEGATIVE); PROTEIN URINE NEGATIVE (NEGATIVE); TURBIDITY URINE CLEAR (CLEAR); UROBILINOGEN URINE NORMAL (NORMAL)
[2017-02-26 12:14] LABS: BACTERIA URINE RARE (NEGATIVE); EPITHELIAL URINE 0-2 #/HPF (NEGATIVE); GRANULAR CASTS URINE RARE #/LPF (NEGATIVE); RBC URINE 0-2 #/HPF (NEGATIVE); WBC URINE 0-2 #/HPF (NEGATIVE)
[2017-02-26 12:25] LABS: BASOPHIL % 0.1 %; EOSINOPHIL % 0.1 %; HEMATOCRIT 34.5 % (33.0-46.0); HEMOGLOBIN 11.6 g/dL (10.0-15.0); IMMATURE GRANULOCYTE # 0.5 K/uL (0.0-0.3); IMMATURE GRANULOCYTE % 4.7 %; LYMPHOCYTE # 0.6 K/uL (0.8-4.0); LYMPHOCYTE % 5.3 %; MCH 32.6 pg (27.0-34.0); MCHC 33.6 gm/dL (32.0-36.5); MCV 96.9 fl (83.0-98.0); MONOCYTE # 0.6 K/uL (0.0-1.0); MONOCYTE % 5.7 %; MPV 8.3 fl (9.4-12.4); NEUTROPHIL # (ANC) 8.8 K/uL (1.8-7.8); NEUTROPHIL % 84.1 %; NRBC % 0.5 /100WBC (0-0.00); PLATELET COUNT 116 K/uL (150-450); RBC 3.56 M/uL (3.50-5.50); RDW-CV 16.4 % (11.9-14.6); WBC 10.4 K/uL (4.0-11.0)
[2017-02-26 12:38] LABS: INR - (THERAPEUTIC) 1.04 (0.92-1.07); PROTIME 10.9 SECONDS (9.8-11.4); PTT 22 SECONDS (25-32)
[2017-02-26 12:41] LABS: ALBUMIN 3.2 gm/dL (3.5-5.0); ALK PHOS 73 IU/L (33-138); ALT 25 IU/L (12-78); ANION GAP 13.8 (10.0-19.0); AST 12 IU/L (10-40); BLOOD UREA NITROGEN 27 mg/dL (6-24); CALCIUM 8.4 mg/dL (8.5-10.5); CHLORIDE 105 mMol/L (96-110); CO2 26 mMol/L (22-32); CREATININE 0.7 mg/dL (0.5-1.1); MAGNESIUM 2.5 mg/dL (1.8-2.6); POTASSIUM 3.8 mMol/L (3.7-5.1); SODIUM 141 mMol/L (135-145); TOTAL BILIRUBIN 0.6 mg/dL (0.0-1.5); TOTAL PROTEIN 6.7 g/dL (6.0-8.4)
--- NOTE | 2017-02-26 17:15 | NUR ---
61 YO female admitted to ICU this evening arrived to [facility] at 1450 transferred from ED. Lives in [place] with , past medical history includes: Diagnosed with glioblastoma in November 2016 Grade 4, obesity and lower back pain, also has history of falling at home off of bar stool approx 3 weeks ago and past falls prior, lower back pain, has received radiation since diagnosis of GBM with Dr. Larson, hx of UTI and incontinence. She was leaving Dr. Larson's office today and was in her car, when family noticed she had a blank stare, began smacking her lips and could not recognize her family members, she was taken to the ED, normally takes Keppra at home. She was complaining of lower back pain, scan performed showing old compression fractures. UA performed, reportedly negative. V.S. stable upon arrival, some difficulty in forming words, able to state her first and last name, follows commands and moves spontaneously, breathing regular, shallow and on RA. Family accompained and are at bedside.
--- NOTE | 2017-02-26 17:21 | NUR ---
Significant Event: Alert to person and , unsure of location, month or year. Dysphasia, hesitant speech present. Pupils 4mm brisk. Chronic N/T to L) and R) distal 3 fingers. LUE slightly weaker when lifting extremity off of bed compared to RUE. LLE slightly weaker when lifting extremity off of bed compared to RLE. Follows commands. Systolic 110-120's, HR 70's, 1+ edema to UE's, 3+ edema to LE's, strong pulses throughout. L.S. clear and diminished in lower lobes, on RA. B.S. active, last BM 02/26. Inserted colin catheter, draining nat urine. PIC L) hand SL'd, to start IVF at midnoc, activity as tolerated, diet as tolerated, NPO at midnoc. Seizure precautions. Follow up: Neuro Checks Q2Hrs, x 8 hrs then Q4Hrs if stable. NPO at midnoc, plan for SUPERINTENDENT ELECTRIC POWER shunt in AM with Bharti.
--- NOTE | 2017-02-27 07:01 | NUR ---
Significant Event:Patient is A/O to self, place et year only. Pleasant et cooperative. LS clear, O2 sats >90% on RA. BS x4, no BM this shift. Ate 100% of dinner. NPO after midnoc for ARRANGING FUNERAL DIRECTOR shunt placement, consent signed by daughter. L) PIV with NS at 70ml/hr. Follows commands x4 extremeties, left leg weaker than right. 4+ pitting edema to bilateral ankes/feet. c/o numbness to BLE. Alex in place draining clear yellow. Follow up: ARRANGING [employer]ERAL DIRECTOR shunt placement
--- NOTE | 2017-02-27 17:16 | NUR ---
SIGNIFICANT EVENT: PATIENT TO ICU NTU STATUS AT 1100 THIS AM. PATIENT GOT A ANIMAL SCIENTIST SHUNT THIS AM. PATIENT ALERT, OPENS EYES SPONT AND TO VOICE. PUPILS REACTIVE. PATIENT ORIENTED X3. SPEECH IS CLEAR, SLOW. PATIENT MOVES ALL 4 EXTREMITIES SPONTANEOUSLY AND TO COMMANDS. EQUAL STRENGTH THROUGHOUT. PATIENT DENIES NUMBNESS, TINGLING, OR PAIN. PATIENT AHS BEEN SINUS RHYTHM, HR 60-70S. SOME PVC'S NOTED. BP STABLE, SBP 90-110S, MAP>65. PULSES PALPABLE THROUGHOUT. EDEMA PRESENT, MOST SIGNIFICANT IN BILAT LOWER EXTREMTIIES. DR WAY AND DR EID NOTIFIED. AFEBRILE. ON ROOM AIR, SATS MID 90S. BOWEL SOUNDS PRESENT, NO BM. TOLERATING REF DIET WELL, NO COMPLICATIONS SWALLOWING. ARGUETA INTACT, ADEQUATE URINE OUTPUT. NO NEW SKIN ISSUES NOTED. PIV IN L) UPPER EXTREMITY, NO COMPLICATIONS. NS INFUSING AT 75ML/HR. FOLLOW UP: CONTINUE TO MONITOR.
--- NOTE | 2017-02-28 06:58 | NUR ---
Significant Event: PATIENT ALERT, ORIENTED X 3 THIS MORNING. REQUIRED VERBAL CUES AT BEGINNING OF SHIFT. MOVES ALL EXTREMITIES SPONTANEOUSLY. LEFT UPPER EXTREMITY WEAKER THAN RIGHT. SLIGHT TREMOR NOTED TO LEFT EXTREMITY. AFEBRILE. ON ROOM AIR THROUGHOUT SHIFT. ARGUETA WITH GOOD UOP. NO BM. POOR APPETITE. PIV WITH NS AT 75ML/HR. Follow up: CT WITH SHUNT SERIES TODAY
--- NOTE | 2017-02-28 20:06 | NUR ---
ULTRA HIGH FALL RISK Significant Event: A/O X2-3, Forgetful of day of the week/month. cooperative, follows commands, slight LUE weakness, moderate equal strength to BLE, 4+pitting edema to Bilat. feet. aleovesta to pressure ulcer to R)buttocks, turned q 2hr, family @ bedside entire shift, redness to folds, abdomen softly distended, denies passing flatus, drsg to Abdomen intact w/ shadow drng marked, stapled drsg to R)head intact. colin patent, R)AC saline lock, lungs dim BLL, good appetite, Follow up: PT/OT in a.m.
[2017-03-01 06:07] LABS: ANION GAP 9.7 (10.0-19.0); BLOOD UREA NITROGEN 13 mg/dL (6-24); CALCIUM 8.2 mg/dL (8.5-10.5); CHLORIDE 106 mMol/L (96-110); CO2 28 mMol/L (22-32); CREATININE 0.6 mg/dL (0.5-1.1); POTASSIUM 3.7 mMol/L (3.7-5.1); SODIUM 140 mMol/L (135-145)
--- NOTE | 2017-03-01 07:50 | NUR ---
Significant Event: A/O. DID HAVE DIFFICULTY STATING LOCATION ONCE OVERNIGHT. VSS. AFEBRILE. PLACED ON 2L O2 OVERNIGHT D/T DESATTING TO 86% WHILE SLEEPING. WEANED TO 1L THIS AM. NO BM OVERNIGHT. POOR PO INTAKE. 2450ML UOP FROM ARGUETA. DILAUDID 0.1MG IV GIVEN X1 FOR C/O PAIN IN BACK OF HEAD/NECK. REPOSITIONED Q2HR. Follow up: DR. DOUGLAS CONSULT TODAY
--- NOTE | 2017-03-01 13:30 | NUR ---
Introduced self and role of care management to patient. Patient is very drowsy and keeps falling asleep. Reviewed chart and patient lives in [place] with her . Talked to her nurse and she says Dr. Hay wants patient to go to [facility] or [place]. Talked to Liv on [facility] and she says they will have a bed on 03/03 and can accept patient at that time if she wants to come to them. Will follow.
--- NOTE | 2017-03-01 17:00 | NUR ---
Spoke with patient's as patient down to radiology. Talked to him about inpatient rehab versus skilled care and options of [facility] or [facility]. He says he has talked with their daughter and they would like her to stay here if she can. He says inpatient rehab sounds like a good option. Dr. Hay on unit and talked with him and updated him. Plan for patient to transfer to [facility] on 03/03 at 0900. Will follow.
--- NOTE | 2017-03-01 17:27 | NUR ---
Significant Event:A/O X 3. Follow up:
--- NOTE | 2017-03-02 04:34 | NUR ---
Significant Event: PATIENT IS ALERT, ORIENTED AT TIMES. TROUBLE WITH WORD FINDING. FOLLOWS COMMANDS, MOVES ALL EXTREMETIES SPONTANEOUSLY WITH GENERALIZED WEAKNESS. PUPILS 3MM BRISK AND REACTIVE. DROWSINESS CONTINUING THIS SHIFT. NO HEADACHE. PATIENT SR, HRS 60S-80S, AFIBRILE. 3+ EDEMA TO LOWER EXTREMETIES, 2+ TO UPPER EXTREMETIES. LUNG SOUNDS CLEAR/DIMINISHED THROUGHOUT. PATIENT HYPO ACTIVE BOWEL SOUNDS, CONSTIPATED, LAXATIVES STARTED, NO RESULTS, POOR APPETITE. ARGUETA INTACT, 825 UOP. NO PRNS GIVEN. Follow up:
--- NOTE | 2017-03-02 16:39 | NUR ---
PATIENT IS ALERT AND ORIENTED x3. PATIENT IS CURRENTLY UP IN THE CHAIR. PATIENT SHOWS SOME SIGNS OF LEFT SIDED WEAKNESS. PATIENT IS A 1 ASSIST AND USES A GAIT BELT AND FRONT WHEELED WALKER WHILE AMBULATING. PATIENT HAS EDEMA THROUGHOUT EXTREMITIES, 3-4+ IN LEGS AND 1-2+ IN ARMS. PATIENT'S PULSES ARE THREADY IN ALL FOUR EXTREMITIES. PATIENT WAS ON NC THIS MORNING AND WAS SWITCHED TO RA, SHE HAS BEEN ON RA WHILE AWAKE. PATIENT IS CLEAR IN THE UPPERS AND CLEAR AND DIM IN THE LOWERS. PATIENT HAS HYPOACTIVE BOWEL SOUNDS AND HAS RECEIVED LAXATIVES TO HELP WITH BOWEL MOVEMENT. PATIENT HAS A ARGUETA IN FOR STRICT I&O. PATIENT HAS A SURGICAL INCISION ON THE RIGHT SIDE OF HER HEAD AND IT IS OPEN TO RA. PATIENT HAS SORE ON LEFT BUTT CHEEK THAT IS OPEN TO AIR. PATIENT HAD BOTH OF THE IV'S IN HER LEFT ARE DC'D DUE TO LEAKING. PATIENT HAD A NEW IV STARTED IN HER LEFT AC. PATIENT HAD A LOW MAG LEVEL, SO DR ORDERED MAG SULFATE IV AND KCL PO. PATIENT RECEIVED TYLENOL 650 FOR PAIN THIS AFTERNOON. SET PARAMETERS FOR PATIENT'S APRESOLINE DUE TO LOW BP, WE ARE TO HOLD APRESOLINE FOR SBP LOWER THAN 130. PATIENT HAS BEEN CONFUSED THROUGHOUT THE DAY WITH INNAPROPRIATE SPEACH.
--- NOTE | 2017-03-02 17:10 | NUR ---
Talked with patient earlier today and explained inpatient rehab to her. She is in agreement with [facility]. Notified by Liv on [facility] and pt's insurance has preauth'd transfer to [facility] tomorrow. Spoke with patient and and updated them. Answered their questions. Anticipate transfer to [facility] tomorrow 03/03 at 0900. Will follow.
--- NOTE | 2017-03-02 17:14 | NUR ---
PATIENT IS ALERT AND ORIENTED x3. PATIENT SHOWS SIGNS OF LEFT SIDED WEAKNESS. PATIENT HAS 3-4+ EDEMA IN LOWER EXTREMITIES, AND 1-2+ EDEMA IN UPPER EXTREMETIES. PATIENT HAS THREADY PULSES IN ALL FOUR EXTREMITIES. PATIENT WAS ON NC THIS MORNING AND WAS SWITCHED TO RA WHILE AWAKE DURING THE DAY. PATIENT HAS HYPOACTIVE BOWEL SOUNDS AND HAS BEEN GIVEN LAXATIVES TO HELP STIMULATE A BOWEL MOVEMENT. PATIENT HAS AN INDWELLING ARGUETA CATHETER TO HELP WITH RECORDING A STRICT I&O. PATIENT HAS A SURGICAL INCISION ON THE RIGHT SIDE OF HER HEAD THAT IS OPEN TO ROOM AIR, DR EID REMOVED THE DRESSING PREVIOUSLY COVERING IT. PATIENT HAS AN OPEN SPOT ON HER LEFT BUTT CHEEK THAT IS OPEN TO AIR. PATIENT HAS AN ISLAND DRESSING ON ABDOMEN COVERING INCISION SITE, THE DRESSING IS CLEAN AND INTACT. PATIENT HAS AN IV IN HER RIGHT ARM THAT FLUSHES WELL WITH NO COMPLICATIONS. PATIENT IS A 1 ASSIST AND USES A GAIT BELT AND FRONT WHEELED WALKER WHILE AMBULATING. PATIENT IS CURRENTLY UP TO THE CHAIR.
--- NOTE | 2017-03-03 05:14 | NUR ---
Significant Event:PATIENT IS ALERT, WILL BE ORIENTED X3 AT ONE ASSESSMENT, THEN ORIENTED TO SELF ONLY WITH THE NEXT ASSESSMENT RETURNING TO BASELINE AT BEING A/O X3. FORGETFUL, FLAT AFFECT, PLEASANT ET COOPERATIVE. LS CLEAR, NO 02 NEEDS. BS X4, ABD DISTENDED. 1+ BUE EDEMA, 3+ BLE EDEMA. PATIENT WISHES TO SLEEP IN HER CHAIR T/O NOC. HORSESHOE INCISION TO RIGHT PARIETAL/OCCIPITAL REGION WITH SUTURES INTACT, ES, EDGES WELL APPROXIMATED, NO DRNG. ABD INSISION WITH ISLAND DRSG CDI. ARGUETA PATENT, DRAINS CLEAR YELLOW. REPORT GIVEN TO [facility] PATIENT WILL TRANSFER AT 0900 Follow up: TRANSFER TO [facility] AT 0900
--- NOTE | 2017-03-03 08:46 | NUR ---
Significant Event: PT alert, slow to respond to questions, follows all commands. VSS, on room air. Incision to head, sutures intact. Abdominal dressing intact. L)buttock small open area, moisture barrier applied. R)AC IV patent. Alex patent. PT ambulates with 2 assist, gait belt. Follow up:
== END 2017-03-03 11:00 | DRG 32 ==
LOC: GMED 11:16 → GICU 13:52 → GIRP 03-03 11:00 → GICU 03-03 11:00 → GIRP 03-03 11:00
PROVIDERS: Family Medicine; Internal Medicine; ADMIT Neurological Surgery
PROC: 00160J6 Bypass Cerebral Ventricle to Peritoneal Cavity with Synthetic Substitute, Open Approach (ICD-10-PCS; principal; 2017-02-27)
PROC: 0WJG4ZZ Inspection of Peritoneal Cavity, Percutaneous Endoscopic Approach (ICD-10-PCS; principal; 2017-02-27)
DX: C71.9 Malignant neoplasm of brain, unspecified (principal); G91.8 Other hydrocephalus; N19 Unspecified kidney failure; E66.01 Morbid (severe) obesity due to excess calories; Z68.39 Body mass index [BMI] 39.0-39.9, adult; E87.6 Hypokalemia; G40.909 Epilepsy, unspecified, not intractable, without status epilepticus; G47.33 Obstructive sleep apnea (adult) (pediatric); R09.02 Hypoxemia; R32 Unspecified urinary incontinence
CPT/HCPCS: J0690; J1170; J1644; J1953; J2405; J7030; J7040

== ENCOUNTER → 2017-02-26 | Outpatient (CLI) | payer BC | LOC: GAMB 11:00 → EDSTATUS 11:01 | DX: R56.9 Unspecified convulsions (principal); C71.9 Malignant neoplasm of brain, unspecified; H53.149 Visual discomfort, unspecified; R53.1 Weakness; G91.9 Hydrocephalus, unspecified; R32 Unspecified urinary incontinence; R51 Headache; Z79.52 Long term (current) use of systemic steroids; Z79.899 Other long term (current) drug therapy; Z88.2 Allergy status to sulfonamides | CPT/HCPCS: A0425; A0427 ==

== ENCOUNTER 2017-03-03 11:01 | Inpatient (IN) | payer BC ==
[~2017-03-03] VITALS: Ht 177.8 cm; Wt 121.5 kg
--- NOTE | ~2017-03-03 | HP ---
PATIENT'S NAME: SAAD DUNN [facility] AGE: 61 Y [address] ROOM: [place] [address] LOCATION: [facility] ADMIT DATE: 03/03/2017 History & Physical DISCHARGE DATE: FAMILY PHYSICIAN: Irving Cordero MD ATTENDING PHYSICIAN: Adolfo Thornton DATE OF SERVICE: HISTORY OF PRESENT ILLNESS: This 61-year-old pleasant lady is admitted to rehab unit at [facility], [place], [place], on 03/03/2017, and I am dictating history and physical on 03/04/2017. She has unstable gait, dependent in activities of daily self-care with weakness of bilateral lower extremities, at high risk of falling. She also is with precautions of seizure disorder. I saw her on initial evaluation, and that was on 03/01/2017, and recommended intensive rehabilitation for about 3 weeks. On re-evaluation today, the day of admission, 03/03, I recommend intensive rehabilitation for about 2 to 3 weeks, aiming to discharge home at modified [place]. ALLERGIES: SHE IS ALLERGIC TO SULFA AND SULFONAMIDES. PHYSICAL EXAMINATION: GENERAL: She is, at the present time, alert and oriented. VITAL SIGNS: On admission, blood pressure 98/66, temperature 98.7, pulse 76, respiration rate 15. She stands 5 feet 10 inches tall and weighs 126.8 kg. NEUROLOGIC: She is able to follow instructions, able to speak well and clearly. She is able to swallow without difficulty. She is mostly weak in bilateral lower extremities. MEDICATIONS: She is on the following medications: 1. Decadron 3 mg p.o. daily for 5 days, then 2 mg p.o. daily for 5 days, then 1 mg p.o. for 5 days, and then discontinue. 2. Decadron 1 mg p.o. q.5 days, then stop. 3. Tylenol 325 to 650 mg q.4 hours, do not exceed acetaminophen 4 g q.24 hours. PATIENT'S NAME: SAAD DUNN [facility] AGE: 61 Y [address] ROOM: [place] [address] LOCATION: [facility] ADMIT DATE: 03/03/2017 History & Physical DISCHARGE DATE: FAMILY PHYSICIAN: Irving Cordero MD ATTENDING PHYSICIAN: Adolfo Thornton 4. Apresoline 5 to 10 mg IV as needed p.r.n. q.20 minutes p.r.n. 5. Ultram 50 to 100 mg p.o. q.6 hours p.r.n. 6. Colace 100 mg p.o. b.i.d. p.r.n. as needed. 7. Lasix 20 mg p.o. in the morning. 8. Heparin 7500 units subcu twice daily. 9. Keppra 1000 mg p.o. twice daily. 10. Zofran 4 to 8 mg p.o. q.8 hours p.r.n. as needed for nausea. 11. MiraLAX 17 g p.o. p.r.n. as needed. 12. Probiotic one capsule p.o. daily. 13. Pepcid 20 mg p.o. b.i.d. She is, at the present time, showing early fatigue, and we will, at the present time, apply Aloe [place] moisture to the buttocks to prevent any skin breaks and elevate her knee patch when in bed. Iris cushion in recliner also. Today, on 03/04, she is alert and oriented. Vitals are as follows: Blood pressure 124/60, temperature 98.2, pulse 90, respiration rate 20. LABORATORY DATA: CMS not received yet. CBC: White BC 8.4, RBC 3.88, hemoglobin 11.6, hematocrit 34.2, and platelets 151. Prealbumin 24. ASSESSMENT AND PLAN: She is delayed in her response to any instructions and fatigues very early. Tolerated so far at best 90 feet x1 with gait with contact guard assistance and front-wheeled walker. We will put on intensive PT, OT, and speech 3 hours per day, 15 hours per week. 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 She is moderately obese and is at risk of seizure disorder. We will send for Kera level and follow. PATIENT'S NAME: SAAD DUNN [facility] AGE: 61 Y [address] ROOM: [address] [address] LOCATION: [facility] ADMIT DATE: 03/03/2017 History & Physical DISCHARGE DATE: FAMILY PHYSICIAN: Irving Cordero MD ATTENDING PHYSICIAN: Adolfo Thornton We will put on intensive PT and OT 3 hours per day, 15 hours per week, for about 2 to 3 weeks, aiming to discharge at modified independence. All the above was explained to her in detail. She verbalized understanding and agreement with plan of care. ADOLFO THORNTON MD WMS/modl /[id number] D: [id number] T: [id number] HISTORY & PHYSICAL
--- NOTE | ~2017-03-03 | CON ---
PATIENT'S NAME: SAAD DUNN [facility] AGE: 62 Y [address] ROOM: [place] [address] LOCATION: [facility] ADMIT DATE: 03/03/2017 Consultation DISCHARGE DATE: FAMILY PHYSICIAN: Irving Cordero MD ATTENDING PHYSICIAN: Adolfo Thornton DATE OF CONSULTATION: 03/15/2017 REFERRING PHYSICIAN: CARSON HAY MD LOCATION: Inpatient Rehab, room 3430. REFERRING PROVIDER: Dr. Thornton and Dr. Hay CHIEF COMPLAINT: Palliative care referral for family support and goals of care conversation. 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 She is status post concurrent radiation and chemotherapy treatment. She was following up with Dr. Larson and on her way over to visit with Dr. Hay in regard to management of a newly found hydrocephalus. While in the parking lot, she experienced a seizure and was taken to the emergency room. She underwent TALENT ACQUISITION PROGRAM MANAGER shunt placement by Dr. Hay on February 27 and is currently rehabilitating on the inpatient rehab unit. Nursing staff report that late last week, they noted the patient had been slower to respond to questions, and at times, was having difficulties with following commands. A head CT last Wednesday showed a slightly increased mass effect and increasing edema. She was given an IV dose of Decadron and put on q.6 hour dosing as well, and Nursing report they have not noted any significant improvement in her symptoms over the weekend though she was able to interact fairly well with her family for her birthday democrat this . Given the worsening head CT, Palliative Care has been consulted to assist this family with goals of care conversation. PREVIOUS OPERATIONS: 1. Stealth-guided right frontal campos hole and stereotactic biopsy of corpus callosum bifrontal brain tumor. 2. TALENT ACQUISITION PROGRAM MANAGER shunt placement. 3. Total abdominal hysterectomy and bilateral salpingo-oophorectomy. 4. Tonsillectomy. PAST MEDICAL HISTORY: 1. Glioblastoma multiforme diagnosed in November 2016. PATIENT'S NAME: SAAD DUNN [facility] AGE: 62 Y [address] ROOM: [place] [address] LOCATION: [facility] ADMIT DATE: 03/03/2017 Consultation DISCHARGE DATE: FAMILY PHYSICIAN: Irving Cordero MD ATTENDING PHYSICIAN: Adolfo Thornton 2. History of uterine cancer, status post surgical intervention and radiation. 3. Osteoarthritis. 4. Obesity. CURRENT MEDICATIONS: 1. Dexamethasone 4 mg every 6 hours. 2. Dulcolax suppository daily. 3. Famotidine 20 mg p.o. twice daily. 4. Heparin 7500 units subcu twice daily. 5. Keppra 1000 mg p.o. twice daily. 6. Escitalopram 10 mg daily. 7. Furosemide 20 mg p.o. daily. 8. Lactobacillus one tablet p.o. daily. 9. Potassium chloride 20 mEq p.o. daily. 10. Senna-S 2 tablets p.o. daily. 11. Tylenol 650 mg as needed. 12. Dulcolax suppository as needed. 13. Milk of magnesia as needed. 14. Zofran as needed. 15. MiraLAX as needed. 16. Tramadol 50 mg every 6 hours as needed. ALLERGIES: SULFA. SOCIAL HISTORY: She has a history of smoking a pack a day for 30 years, she quit 25 years ago. She does have occasional alcohol use prior to this. She is and lives with her in [place]. They have a son and a daughter. FAMILY HISTORY: The patient is adopted and does not know her family history. REVIEW OF SYSTEMS: GENERAL: The patient is only able to answer yes and no questions. Positive for weight loss, 20+ pounds. Appetite has been fair per Nursing, does need reminders to eat. HEENT: Denies headaches. Denies double vision or changes in her vision. RESPIRATORY: Denies shortness of breath. CARDIOVASCULAR: No chest pain. GASTROINTESTINAL: No nausea, vomiting, or diarrhea. Has had some issues with constipation, this is not new. Denies difficulties chewing or swallowing. GENITOURINARY: Nursing staff report that she is mostly incontinent of urine. Occasionally, will be continent, but is on a toileting schedule. PATIENT'S NAME: SAAD DUNN [facility] AGE: 62 Y [address] ROOM: [place] [address] LOCATION: [facility] ADMIT DATE: 03/03/2017 Consultation DISCHARGE DATE: FAMILY PHYSICIAN: Irving Cordero MD ATTENDING PHYSICIAN: Adolfo Thornton MUSCULOSKELETAL: Denies any joint swelling or joint pain. No back pain. She is able to ambulate in the hallway with a walker and assist. NEUROLOGICAL: No recent seizures. INTEGUMENTARY: No open areas. PSYCHIATRIC: Denies feeling overtly depressed or anxious. Denies insomnia. PHYSICAL EXAMINATION: VITAL SIGNS: Blood pressure 119/71, heart rate 94, temperature 98.9, respirations 16, and O2 saturation is 90% on room air. GENERAL: An alert, middle-aged white female. She is oriented to being in the hospital and the year. Does not appear to be in any acute distress. Does answer questions with primarily yes or no or a couple of words. At times, just gives me a blank stare and then will answer with a delay in thought process. HEENT: Normocephalic and atraumatic. Pupils are equal and reactive to light. Sclerae are nonicteric. Conjunctivae are pink. Tongue and mucous membranes are moist and pink. Dentition is adequate. CARDIOVASCULAR: Heart tones regular rate and rhythm. I am not able to note a murmur. RESPIRATORY: Respirations are regular and nonlabored. Lung sounds are clear to auscultation bilaterally. Unable to note any rales, rhonchi, or wheezes. GASTROINTESTINAL: Abdomen is soft and nontender. She is obese. Bowel sounds are present. MUSCULOSKELETAL: No significant joint deformities. Peripheral pulses are 1+ bilaterally. She does have generalized edema. SKIN: Warm and dry. No unusual lesions. NEUROLOGIC: Grossly intact. IMPRESSION AND PLAN: 1. Glioblastoma multiforme. 2. Generalized debility. 3. Code status. The patient is a full code, does not have an advance directive or a living will. Placed a phone call to the patient's , was able to visit with him briefly, introduced the role of palliative care. He was able to tell me that he was told that his most likely had months to live, and he had questions about discharge plans and where to go from here. Discussed a few possible options. We will plan to meet with him tomorrow when he is able to be here in person to discuss further options and goals of care and also to assist with any advance directive that is needed or power of workers compensation attorney paperwork. I did also touch base with Liv, social work case manager, and she will look into options with insurance. We will plan to follow up tomorrow when the is here in person to discuss the situation further. Total time was 25 minutes. Thank you for allowing me to assist this patient PATIENT'S NAME: SAAD DUNN [facility] AGE: 62 Y [address] ROOM: [place] [address] LOCATION: [facility] ADMIT DATE: 03/03/2017 Consultation DISCHARGE DATE: FAMILY PHYSICIAN: Irving Cordero MD ATTENDING PHYSICIAN: Adolfo Thornton and family. GUNNER CONLEY NP FOR MD JAMI LOVETT/modl /[id number] d: 03/16/17 1537 t: 03/29/17 0856, CONSULTATION REPORT
--- NOTE | ~2017-03-03 | CON ---
PATIENT'S NAME: SAAD DUNN [facility] AGE: 62 Y [address] ROOM: [address] [place], [place] [address] LOCATION: [facility] ADMIT DATE: 03/03/2017 Consultation DISCHARGE DATE: FAMILY PHYSICIAN: Irving Cordero MD ATTENDING PHYSICIAN: Adolfo Douglas DATE OF CONSULTATION: 03/09/2017 REFERRING PHYSICIAN: CARSON EID MD TEAM MEMBERS REPORTING: Include Dr. Douglas; Liv Avila, web content & social media manager; Leslie Faulkner, RN; Casie Perkins, PT; Belen Crook, PT; Blanche Panchal, OT; Elsie Marc, Speech Therapy; and Carlyn Durbin, therapeutic rec. CURRENT STATUS: Carlene Sosa is a 61-year-old woman, admitted to our inpatient rehab unit on March 03, 2017, following an insertion of a STEAM TABLE ATTENDANT shunt. The patient has a history of a butterfly glioblastoma found back in November 2016. She has already underwent radiation for this. She has a sore on her right bottom. She is incontinent of bowel and has a Alex catheter. We are monitoring her head incision and small incision on her abdomen. No complaints of pain. She is on a regular diet, started Ensure Enlive daily at lunch. She can transfer sit to stand and stand to sit, minimal to contact guard assistance. She is able to walk 150 feet with a front-wheeled walker at contact guard assistance. She can climb two stairs with 2 railings at minimal assistance. The patient does occasionally freeze. Her processing is very delayed. She is dependent for lower body dressing, dependent for bathing, dependent for toilet transfers and toileting. Goals have been set for standby. Comprehension is at moderate assistance. Language and expression, moderate assistance. Memory and problem solving, max assistance. The patient is very active in evangelical and likes to receive [employer]. DISCHARGE PLAN: The patient is receiving 3 hours of PT, OT and Speech Wednesday through Wednesday. The patient has daily rehab, nursing, and physiatry involvement as well as therapeutic recreational services 4 days per week. The patient has shown functional improvement and is progressing. Please see her plan of care for specific goals. Plan is for patient to discharge in approximately 10 to 14 days. The patient will need 24-hour assistance at home. If that cannot be provided, will maybe need to look at a long-term facility. LIV AVILA FOR ADOLFO DOUGLAS MD PATIENT'S NAME: SAAD DUNN [facility] AGE: 62 Y [address] ROOM: [place] [address] LOC[facility] ADMIT DATE: 03/03/2017 Consultation DISCHARGE DATE: FAMILY PHYSICIAN: Irving Cordero MD ATTENDING PHYSICIAN: Adolfo Douglas TD/siminl /[id number] d: 03/14/177 t: 03/26/17 1137, CONSULTATION REPORT
--- NOTE | ~2017-03-03 | DS ---
PATIENT'S NAME: SAAD DUNN [facility] AGE: 62 Y [address] ROOM: [address] [place], [place] [address] LOCATION: [facility] ADMIT DATE: 03/03/2017 Discharge Summary DISCHARGE DATE: 03/18/2017 FAMILY PHYSICIAN: Irving Cordero MD ATTENDING PHYSICIAN: Adolfo Douglas [facility] COURSE: This 61 years old, turned 62 years old while she was with us, and was admitted to Rehab Unit at [facility], [place], [place] on 03/03/2017, is discharged today on 03/18/2017 to go to [facility] in [place], [place] with an adult person (her ). She was admitted with unstable gait, dependent activities of daily and self- care, status post hydrocephalus secondary to a glioblastoma and did undergo a stereotactic placement of ventriculoperitoneal shunt on 02/27/2017, details on record for a butterfly glioblastoma and nonobstructive hydrocephalus. She on seizure disorder precautions. She is at the present time, doing well, alert, oriented, slow but proper. She can ambulate up to 150 feet x1 and gait is with front-wheeled walker and with a contact guard gynecological assistant. VITAL SIGNS: Her vitals are as follows: Blood pressure 116/77, temperature 98.4, pulse 92, and respiration rate 16. At the present time, she will continue with PT, OT, and speech 5 times per week for the coming 4 weeks and any renewals through her family physician. No followup with me please. Follow up with Dr. Hay and Dr. Llamas, each as he sees fit, and she must follow with her family physician as soon as possible. On medication, I have given for full 30 days and any renewals through her family physician please. She is on the following medications: 1. Dulcolax suppository rectally 10 mg daily. 2. Decadron 3 mg 3 times daily. 3. Lexapro 10 mg p.o. daily. 4. Pepcid 20 mg twice daily. 5. Lasix 20 mg p.o. daily. 6. Lactinex one tablet every day. 7. Keppra 1000 mg p.o. b.i.d. PATIENT'S NAME: LOTUS DUNNAN Sandeep [facility] AGE: 62 Y [address] ROOM: [address] [place], [place] [address] LOCATION: [facility] ADMIT DATE: 03/03/2017 Discharge Summary DISCHARGE DATE: 03/18/2017 FAMILY PHYSICIAN: Irving Cordero MD ATTENDING PHYSICIAN: Adolfo Douglas 8. Potassium chloride tablet 20 mEq p.o. daily. 9. Senokot two tablets p.o. daily. 10. Tylenol 325 mg to 650 mg p.o. q.4 hours p.r.n., do not exceed acetaminophen 4 g every 24 hours. 11. MOM 30 mL p.o. p.r.n. 12. Ultram 50 to 100 mg p.o. q.6 hours p.r.n. FINAL DIAGNOSES: 1. Unstable gait. 2. Dependent in activities of daily living and self-care. 3. Confusion with speech difficulty. 4. Status post stereotactic placement of ventriculoperitoneal shunt on 02/27/2017, to remedy hydrocephalus, nonobstructive secondary to butterfly glioblastoma. 5. On seizure precautions. 6. History of uterine disorder, status post surgical excision. 7. Morbidly obese. 8. Depression. 9. Reflux gastric disease. 10. Bowel and bladder incontinence. DISCHARGE INSTRUCTIONS: The patient is not to drive and/or operate any mechanical or electrical device until she is re-evaluated. All the above was explained to her and to her , they verbalized understanding. She is to be assisted at all time for safety. She is well aware of that and so is her . ADOLFO DOUGLAS MD WMS/modl /[id number] d: 03/18/17 1353 t: 03/20/17 0759, DISCHARGE SUMMARY
--- NOTE | ~2017-03-03 | CON ---
PATIENT'S NAME: SAAD DUNN [facility] AGE: 62 Y [address] ROOM: [id number] [place], [place] [address] LOCATION: GIRP ADMIT DATE: 03/03/2017 Consultation DISCHARGE DATE: 03/18/2017 FAMILY PHYSICIAN: Irving Cordero MD ATTENDING PHYSICIAN: Adolfo Douglas DATE OF CONSULTATION: 03/16/2017 REFERRING PHYSICIAN: Sonu Hay MD TEAM MEMBERS REPORTING: Dr. Douglas; Liv Avila, socially responsible investment adviser; inpatient rehab nursing staff; Casie Perkins, PT; Belen Crook, PT; Blanche Panchal, OT; Elsie Marc, Speech Therapy; Carlyn Durbin, therapeutic rec; and sister Gris Cowart, [facility]. CURRENT STATUS: Saad is a 62-year-old woman who came in to our inpatient rehab unit on March 03, 2017, following a LATEX SPOOLER shunt insertion. The patient also has a history of a glioblastoma, identified back in November 2016. The patient is incontinent of bowel and bladder. Her medications are crushed. She is on a regular diet, remains at low nutritional risk. She can transfer sit to supine at moderate assistance; supine to sit, moderate assistance; sit to stand and stand to sit, contact guard assistance to minimal assistance. She can complete a stand pivot transfer with minimal assistance. She can walk 150 feet with a front- wheeled walker at contact guard assistance to standby assistance. She does need lots of cues. She can climb 4 stairs with 2 railings at contact guard assistance. She has met zero long-term and zero short-term goals. She can dress her upper body with minimal assistance, lower body dependent, bathing dependent, toilet and shower transfers dependent, and toileting dependent. She has met 0/13 long-term OT goals. She is slow for processing. Comprehension is at moderate assistance. Language and expression, moderate assistance. Memory and problem solving, max assistance. She does require tactile cues at times. Car transfers have not been done yet. The patient is getting communion. DISCHARGE PLAN: The patient is receiving 3 hours of PT, OT, and speech Wednesday through Wednesday. The patient has daily rehab, nursing, and physiatry involvement as well as therapeutic rec services. The patient has shown functional improvement and is progressing. Please see her plan of care for specific goals. Plan is for patient to discharge on March 18, 2017. The patient plans to go to the [facility]. PATIENT'S NAME: SAAD DUNN [facility] AGE: 62 Y [address] ROOM: [place] [address] LOCATION: [facility] ADMIT DATE: 03/03/2017 Consultation DISCHARGE DATE: 03/18/2017 FAMILY PHYSICIAN: Irving Cordero MD ATTENDING PHYSICIAN: Adolfo Douglas LIV AVILA FOR ADOLFO DOUGLAS MD TD/modl /[id number] d: 04/05/[id number] t: 04/19/17 1127, CONSULTATION REPORT
--- NOTE | 2017-03-03 14:44 | NUR ---
Significant Event:PATIENT ADMITTED TO ROOM 3430 FROM ICU VIA WHEELCHAIR. HAS A ARGUETA WITH DARK YELLOW URINE AND A SALINE LOCK IN HER RIGHT ANTECUBITAL. SL FLUSHED WELL WITH BLOOD RETURN. DENIED PAIN WHEN ADMITTED. NEEDS 2 ASSIST, TO GET HER UP BUT ONCE SHE IS UP SHE DOES WELL. SHE IS DISORIENTED TO TIME AND PLACE. HAS SLOW PROCESSING OF HER THOUGHTS. WHEN ASKED WHAT SHE LIKES TO DO OR OTHER QUESTIONS SHE STATES "UH" AND THEN DOESN'T GO ANY FURTHER. VSS. TAKES MEDS WHOLE WITH WATER AND DOES WELL WITH EATING. HAS HEMORRHOIDS WHICH WERE BLEEDING TODAY AFTER HER BM. SHE HAD NOT HAD ONE FOR 4 DAYS. DID STATE THE AREA WAS TENDER WHEN WIPED. ALOE TO BUTTOCKS WHICH HAS A WOUND PRESENT WTIH DRY SCALY SKIN SURROUNDING AREA. WOC NURSE NOTIFIED AND ORDER PLACE FOR THEM TO SEE. SHE HAS SIGNIFICANT SWELLING IN HER LOWER EXTREMITIES AND ALSO SOME IN HER UPPER EXTREMITIES. NO OTHER COMPLAINTS. DOES HAVE A FLAT AFFECT. Follow up:
--- NOTE | 2017-03-04 04:01 | NUR ---
Significant Event: Alert to self only. Disoriented to time and place. When asked questions patient replys "umm" and has a blank stare on face. Needs multiple promts and cues when asking questions. Patient will press all call light buttons and when asked, she does not know what she wanted. Impaired memory. Refused to go to bed up in chair most of night. Encouraged to lay down to get some rest at 0130. 2PA pivot transfer to chair with cues. Rested well rest of night, repositioned self with each rounding. ABD dressing C/D/I. Sutures to head intact. Patient was picking at spot behind ear at times, encouraged to stop. Alex draining yellow urine. Good output. Follow up:
[2017-03-04 06:44] LABS: BASOPHIL % 0.5 %; EOSINOPHIL # 0.1 K/uL (0.0-0.5); EOSINOPHIL % 0.8 %; HEMATOCRIT 34.2 % (33.0-46.0); HEMOGLOBIN 11.6 g/dL (10.0-15.0); IMMATURE GRANULOCYTE # 0.4 K/uL (0.0-0.3); LYMPHOCYTE % 11.9 %; MCH 32.7 pg (27.0-34.0); MCHC 33.9 gm/dL (32.0-36.5); MCV 96.3 fl (83.0-98.0); MONOCYTE # 0.5 K/uL (0.0-1.0); MONOCYTE % 6.3 %; MPV 8.7 fl (9.4-12.4); NEUTROPHIL # (ANC) 6.3 K/uL (1.8-7.8); NEUTROPHIL % 75.5 %; NRBC % 0.7 /100WBC (0-0.00); RBC 3.55 M/uL (3.50-5.50); RDW-CV 16.1 % (11.9-14.6); WBC 8.4 K/uL (4.0-11.0)
[2017-03-04 06:48] LABS: PLATELET COUNT 151 K/uL (150-450)
[2017-03-04 11:56] LABS: ALBUMIN 2.7 gm/dL (3.5-5.0); ALK PHOS 66 IU/L (33-138); ALT 25 IU/L (12-78); BLOOD UREA NITROGEN 21 mg/dL (6-24); CALCIUM 8.3 mg/dL (8.5-10.5); CHLORIDE 110 mMol/L (96-110); CO2 19 mMol/L (22-32); CREATININE 0.5 mg/dL (0.5-1.1); SODIUM 142 mMol/L (135-145); TOTAL BILIRUBIN 0.7 mg/dL (0.0-1.5)
[2017-03-04 11:58] LABS: ANION GAP 17.4 (10.0-19.0); AST 26 IU/L (10-40); POTASSIUM 4.4 mMol/L (3.7-5.1)
--- NOTE | 2017-03-04 14:31 | NUR ---
Significant Event:A/O X 2, disoriented to place or unable to find the word. Cheerful, interactive. HR 90's. SBOP 120's. Remains on room air. 2 assist with gait belt and walker to rock into standing position with cues, does ambulate and transfer with 1 assist. Set up for meals. AFter lunch is typlically more flat affect, drowsy, grimacing with movements. 100 mg PO ultram given for back ache. Sutures to right head approximated edges. [place] to right head. Ecchymosis to right head, neck and petichiae to right upper arm. Shower and shampoo this AM. Island barrier dressing to right mid abd. C/D/I. Follow up:therapies
--- NOTE | 2017-03-05 04:13 | NUR ---
Significant Event: Drowsy, disoriented to place and time. Needs cues for her to tell me her birthday. Trouble finding words, blank stare off into the distance with some questions. Visual cues when taking pills and standing up out of chair are helpful. Takes meds 1 at a time with water. Big pills cut in half. 2PA to get up then transfers with 1PA, walker/GB. Alex with minimal output, hospitalists aware, to check CMS in AM. VSS on room air. Follow up: CMS results
[2017-03-05 06:09] LABS: ALBUMIN 2.7 gm/dL (3.5-5.0); ALK PHOS 65 IU/L (33-138); ALT 22 IU/L (12-78); ANION GAP 14.5 (10.0-19.0); AST 16 IU/L (10-40); BLOOD UREA NITROGEN 24 mg/dL (6-24); CALCIUM 8.2 mg/dL (8.5-10.5); CHLORIDE 108 mMol/L (96-110); CO2 23 mMol/L (22-32); CREATININE 0.5 mg/dL (0.5-1.1); POTASSIUM 3.5 mMol/L (3.7-5.1); SODIUM 142 mMol/L (135-145); TOTAL BILIRUBIN 0.6 mg/dL (0.0-1.5); TOTAL PROTEIN 5.9 g/dL (6.0-8.4)
--- NOTE | 2017-03-05 08:35 | NUR ---
D: Therapeutic Recreation Initial Assessment on the 03/05/17. I: Patient seen for 2 units to begin initial evaluation. Pt has dx of glioblastoma with recent hydrocephalus, and shunt placement. R: Patient's current living situation and status: house Home entrance steps: 3 Living with: Spouses name: Kermit # of children: 2 Driving: yes, spouse does drive Ambulating: I Equipment: N/A Hand Dominance: Right Batter Out strength: N/T Eye sight: glasses Reading ability: N/T Hearing: no problem Speech: aphasia (word finding) Cognition: impaired, slow processing Comprehension: poor Following directions: at times Initiating: no Eye contact: good Affect: flat COMMUNITY INVOLVEMENT: druze x2 per month, grocery shopping, out to eat, visit family friends, attend grandchildren's event LEISURE INTERESTS: watch TV, computer (email, internet, facebook), garden, yard work, word puzzles, karen Patient is referred by medical staff for treatment and evaluation in the following areas: Community Skills, Functional Leisure Skills, Participation, Leisure Education/Behaviors, Family Education, Cognitive, Emotional. Information obtained: Interview, Chart Review, Observation, other. BARRIERS TO LEISURE: Social, Financial, Physical, Lifestyle (smoked in the past, reports problems with depression) Transportation, Leisure Skills. Patient determined to be: APPROPRIATE FOR THERAPEUTIC RECREATION ASSESSMENT. TREATMENT WILL INCLUDE: Community living skills training Functional leisure development Physical skills development Cognitive skills development Social skills development Leisure education Emotional/behavioral adaptation Family education Community resources/packet TARGET EQUIPMENT/INFORMATION: Parking Permit HAS IN PLACE Community Resources Energy conservation in community setting Van/Service/Taxi Scrip Adapted Leisure Equipment Stress management/Relaxation techniques Functional car transfers Leisure Education Behaviors: Attitude, Awareness, Participation. Patient functional skills level and potential: Guarded pt demonstrates poor mobility, slow processing and concerns for coping per pt's report. Patient oriented ot TR services on Rehab unit. Pt/family provided input into goals setting and plan of care. P: Target date set with personal goals established. Will continue with POC focusing on pt/family training and education. For additional information please see Nursing Data Base, PT, OT, CM, ST, initial assessments to [facility] and Interdisciplinary Assessments.
--- NOTE | 2017-03-05 18:48 | NUR ---
Significant Event: Alert and oriented X 2, difficulty to remember day of the month. Patient does have blank stares occasionally. Patient does need visual cues at times when taking medication. Takes medication 1 at a time with water. 2 person assist to get out of bed and 1 assist to walk. Patient uses walker and gait belt. Alex catheter intact with 700 ml out this shift. VSS and on room air. Pleasant and cooperative with cares. Follow up:
--- NOTE | 2017-03-06 04:17 | NUR ---
Significant Event:pt alert, with noted periods of confusion. does return to baseline however does have times where she has a blank stare will not answer questions, episodes last only short period of time and pt does reorient well. transfers with 1-2 assist gait belt walker and does well with this. colin in place wtih 750cc of dark yellow urine out. pt noted to hae 3+ pitting edema to bilateral lower extremities. carolyn removed at hs.sutures to right mid/back head has no drainage noted, no s/s infection noted. dressing to right lower abdomen clean dry intact. pt takes medication whole no complications. did take 2 ultram at hs. has rested well during night. iv to right saline locked with old blood under dressing. Follow up:
--- NOTE | 2017-03-06 13:53 | NUR ---
Significant Event: Alert and oriented x 2. Unable to recall time of the day. Up with 1A walker and gait belt. Denies pain. Occasionally has blank stares. 3+ edema to bilateral lower extremities. Takes her pills whole with water but needs lots of encouragement to get them down. Encourage patient to drink more fluids. Alex intact and patent. Only 200ml out by 1400. Dressing to right lower abdomen C/D/I. Sutures to right side of head intact. Open to air. No drainage. IV salin locked to right arm. Alarms. Unable to use call light properly. Follow up:
--- NOTE | 2017-03-07 03:00 | NUR ---
Significant Event: Patient is alert and oriented to self and time. Disoriented to place. Forgetful. VSS on room air. Incision to right side of head is open to air, edges approximated. Dressing to right side of abdomen is clean, dry, and intact. Order to have dressing removed today. Up with 1 assist, walker, and gaitbelt. Needs encouragement to ambulate. Alex intact. Denies any pain. Takes meds whole with water. Patient is pleasant and cooperative with cares. Follow up:
--- NOTE | 2017-03-07 15:45 | NUR ---
Significant Event: Alert and oriented x 2. Disoriented to place. Up with 1A walker and gait belt. Denies pain. Pitting edema to bilat lower extremities. Takes pills whole with water. Alex intact and patent. 700mL out this shift. Dressing to right lower abdomen removed. Fleming intact. Edges approximated. Incision to right side of head open to air. Edges approximated. IV saline locked to right arm. LG incontinent BM this shift. Cooperative with cares. Follow up:
--- NOTE | 2017-03-08 04:41 | NUR ---
Alert and oriented to person and time only. Up with one assist/gaitbelt and walker, but does have difficulty getting up out of chair. Pitting edema to lower extremities. To bed at 2030, slept for very short periods and up most of night. 500ml concentrated yellow urine out of colin. Stitches intact to surgery site on back of head, and sai intact & open to air over lower abdomen. Denies pain.
[2017-03-08 06:30] LABS: ALBUMIN 2.6 gm/dL (3.5-5.0); ALK PHOS 68 IU/L (33-138); ALT 24 IU/L (12-78); ANION GAP 10.7 (10.0-19.0); AST 14 IU/L (10-40); BLOOD UREA NITROGEN 16 mg/dL (6-24); CALCIUM 8.3 mg/dL (8.5-10.5); CHLORIDE 106 mMol/L (96-110); CO2 27 mMol/L (22-32); CREATININE 0.6 mg/dL (0.5-1.1); POTASSIUM 3.7 mMol/L (3.7-5.1); SODIUM 140 mMol/L (135-145); TOTAL BILIRUBIN 0.5 mg/dL (0.0-1.5); TOTAL PROTEIN 6.1 g/dL (6.0-8.4)
--- NOTE | 2017-03-08 10:27 | NUR ---
A-SCREENED D/T LOS S/P SHUNT PLACEMENT. HX OF BUTTERFLY GLIOBLASTOMA S/P CHEMO AND RADIATION ADMITTED TO REHAB W/3+ PITTING EDEMA TO BLE. FORGETFUL; DISORIENTED TO PLACE. HT: 70 IN. ADMIT WT (W/C SCALE): 123.4 KG. BMI: 39.0. IBW: 68 KG LABS: NA 140, K+ 3.7, GLU 97, BUN 16, WRINKLE CHASER 0.6, ALB 2.6, PREALB 24.0 MEDS: ZOFRAN, ULTRAM, PRN BOWEL MEDS, DECADRON, LASIX, SENOKOT, LEXAPRO, PEPCID, KEPPRA, LACTINEX DIET RX: REGULAR. PO INTAKE REF-100%; AVG IS 73%. INTAKE AT BREAKFAST AND DINNER IS 75-100%; LUNCH IS REFUSALS-50%. EST NUTR NEEDS: [id number] KCALS (15-20 KCALS/KG) 102-136 GM PROTEIN (1.5-2.0 GM/KG IBW) 1 ML FLUID/KCAL D-AT NUTRITION RISK W/DECREASED ORAL INTAKE AT TIMES R/T ALTERED APPETITE AEB INTAKE RECORDS I-ADD ENSURE QD AT LUNCH M/E-GOAL: PO INTAKE >/=75% BY DISCHARGE 1)F/U PO INTAKE, SUPPLEMENT TOLERANCE, WT, AND POC IN 3-5 DAYS 2)ASSIST NEEDED
--- NOTE | 2017-03-08 14:53 | NUR ---
Significant Event:Is alert.Slow in responding.Oriented to person & time.She could not tell me her name & birthday earlier today.Isai thapa dk yellow urine.Has incision back of head with sutures.Also has lower abd incision with sai.Is up with walker & 1 assist.Has mod edema in lower extremities.Has SL in Rt.anticubital.No c/o pain.Eating & drinking well. Follow up:
--- NOTE | 2017-03-09 03:33 | NUR ---
Significant Event: PATIENT IS DROWSY AND NEARLY NON-VERBAL UPON ASSESSMENT. NODS "YES/NO" APPROPRIATELY. 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 INCISIONS TO HEAD AND ABD.ARGUETA TO DD. DARK YELLOW URINE NOTED IN DRAINAGE BAG. TURN Q2H. BM ON 03/08. Follow up:
--- NOTE | 2017-03-09 14:52 | NUR ---
D: TR progress note for 03/09/17. I: Pt seen for 2 units at 1332 for leisure education/participation, fine motor skills, pain/stress management and cognitive thinking task. R: Pt seen for functional skills building working on fine motor skills, concentration, social communication, and coping strategies to promote recovery. Pt shown information and websites with 520 sites for easy access to anyone. Pt able to maneuver keypad with some difficulty and SBA with typing using two-handed technique but extra time allotted and written cue for website. Pt unable to recall hometown zip code or how to spell hometown but with written cue able to type location in computer SBA. Pt demonstrated bright affect with good participation. P: Will continue to see to address goals and plan of care.
--- NOTE | 2017-03-09 16:25 | NUR ---
Significant event: Patient is alert to self. Said she was in the [facility]. Has incision to abd and head, with sai intact, no drainage noted. Is on regular diet. Takes pills whole in applesauce. Has colin and is patent. Is incontinent of stool, to be started on bowel program this evening after supper. Is 2 assist with ambulation, transfers with walker. Pt is slow to answer questions, but does seem to answer appropriately.IV to right AC, saline locked. Cooperative with cares.
--- NOTE | 2017-03-10 01:37 | NUR ---
Significant Event:Alert to self at all times. Consistently states she is in [place]. Knows bday with prompting. Cognition slow, allow extra time to reply or follow through with an action. Sutures to scalp intact. Leland to abdomen intact. Open area to buttock, turn side to side when in bed, encourage to repo frequently in chair. SL to R) ac flushes. 2+ Edema to BLE. Lasix increased to 20mg daily. Suppository ordered nightly for bowel management.Alex intact, yellow urine noted.Transfers 2 assist to get up. 1 assist with walker after up. Meds crushed in applesauce. Small meds she takes whole with water. Denies pain. Alarm on. Call light in reach. Follow up:Allow extra time for answers. Alarms. Alex cares.
[2017-03-10 08:22] LABS: HEMATOCRIT 33.6 % (33.0-46.0); HEMOGLOBIN 11.1 g/dL (10.0-15.0); MCH 32.6 pg (27.0-34.0); MCV 98.8 fl (83.0-98.0); MPV 8.6 fl (9.4-12.4); PLATELET COUNT 138 K/uL (150-450); WBC 8.6 K/uL (4.0-11.0)
[2017-03-10 08:47] LABS: ABSOLUTE NEUTROPHIL CT (ANC) 6.7 K/uL (1.8-7.8); BANDED NEUTROPHIL # 0.4 K/uL (0.0-0.1); BANDED NEUTROPHILS % 5 %; LYMPHOCYTE % 12 %; MONOCYTE # 0.5 K/uL (0.0-1.0); SEGMENTED NEUTROPHIL # 6.3 K/uL (1.8-7.8); SEGMENTED NEUTROPHIL % 73 %
[2017-03-10 10:18] LABS: BILIRUBIN URINE NEGATIVE (NEGATIVE); BLOOD URINE 250 /UL (NEGATIVE); COLOR URINE YELLOW (YELLOW); GLUCOSE URINE NEGATIVE (NEGATIVE); KETONE URINE 5 mg/dL (NEGATIVE); LEUKOCYTES URINE 500 /UL (NEGATIVE); NITRITE URINE POSITIVE (NEGATIVE); PROTEIN URINE 100 mg/dL (NEGATIVE); TURBIDITY URINE 3+ (CLEAR); UROBILINOGEN URINE NORMAL (NORMAL)
[2017-03-10 10:34] LABS: BACTERIA URINE RARE (NEGATIVE); EPITHELIAL URINE RARE #/HPF (NEGATIVE); WBC URINE 20-50 #/HPF (NEGATIVE)
--- NOTE | 2017-03-10 11:49 | NUR ---
D: TR progress note for 03/10/17. I: Pt seen for 2 units at 1100 in group session for education on safety when around pets/animals, leisure education and coping strategies. R: Pt seen for functional skills building working on relaxation techniques, stress/pain management, and continued education on coping skills using animals during Animal Assisted Therapy plus increase safety awareness when around pets. Pt completed functional communication skills min assist which included personal introduction self but when attempting to provide information about own pets noted word finding and difficulty. Pt was SBA > min assist when petting animals with poor safety awareness. Education done on safety with ambulation/mobility in homes when around animals, safety with possibility of poor skin integrity and utilizing pets to assist with coping and stress/pain management when opportunity available. P: Will continue to see to address goals and plan of care.
--- NOTE | 2017-03-10 13:43 | NUR ---
Significant Event: Patient alert and oriented to person and place at times but disoriented to date. Transfers with 1-2 assist and use of walker. Patient slow to respond to questions at times. Saline lock to her R) AC flushes well with no blood return. Edema noted to bilateral lower legs. UA, urine culture and CBC done this morning due to slightly elevated temperature last nigit. Alex dc'd at [address] orders with a total of 750 ml out of hazy, yellow urine. Incision to her R) lateral head and RUQ of abdomen. Small sore noted to R) buttocks. Ultram 50 mg given at 1330 for c/o discomfort. Follow up:
--- NOTE | 2017-03-11 03:20 | NUR ---
Significant Event: alert, oriented to person, slow to respond, sometimes does not answer questions. takes meds crushed in applesauce. had ultram 50 mg at 0032 for c/o headache. stitches to head intact and sai to abdomen intact. incontinent of urine, repositioned q2-3 hours. edema 3+ to feet and ankles. heels off bed. transfers with walker and 2 assist. Follow up:
--- NOTE | 2017-03-11 15:37 | NUR ---
Significant Event:PATIENT WAS SLUGGISH THIS AM TO START. SHE HAS HAD DIFFICULTY ACCOMPLISHING TASKS. SHE SPIT ALL HER MEDS OUT TODAY. SHE HAD APPEARED TO BE SWALLOWING AND SAID SHE WAS READY FOR ANOTHER EACH TIME, THEN SPIT THEM ALL OUT. UNSURE HOW MUCH SHE SWALLOWED AND HOW MUCH SHE DIDN'T. VSS. TRANSFERS WITH 2 ASSIST, GAIT BELT AND PIVOT TRANSFER. IS VERY SLOW TO RESPOND AND MOVE. NEEDS LOTS OF CUING. HAS DENIED PAIN. NO OTHER COMPLAINTS. Follow up:
--- NOTE | 2017-03-11 15:40 | NUR ---
A - NUTRITION FOLLOW-UP PT IS SLOW TO RESPOND. 2-3+ EDEMA TO BLE. SMALL SORE TO RIGHT BUTTOCK PER SHIFT REPORT. WT STABLE SINCE ADMIT TO REHAB PER RECORD. LABS: NO NEW LABS MEDS: DECADRON, LASIX. DIET: REGULAR W/ ENSURE ENLIVE ONCE DAILY. INTAKE 81% X11 MEALS. PT REPORTED GOOD APPETITE. EATING/DRINKING WELL PER SHIFT REPORT. HAD MOST OF LUNCH TODAY PER PT. LIKES ENSURE ENLIVE, DOES NOT WANT MORE THAN 1 BOTTLE PER DAY. CONTINUE TO ENCOURAGE ORAL INTAKE. EST NEEDS: [id number] KCAL, 102-136 GRAMS PROTEIN, FLUID NEEDS: 1ML/KCAL D - NUTRITION PROBLEM RESOLVED. I - CONTINUE W/ ENSURE ENLIVE ONCE DAILY. M/E - GOAL: PT WILL CONTINUE TO TOLERATE >75% OF MEALS IN 5-7 DAYS. PLAN: 1) WILL FOLLOW WT, PO INTAKE AND ORAL SUPPLEMENT ACCEPTANCE.
--- NOTE | 2017-03-12 05:03 | NUR ---
Significant Event: PATIENT IS ALERT BUT FORGETFUL AND CONFUSED. NEEDS LOTS OF REINFORCEMENT TO COMPLETE TASKS. AMBULATES WITH WALKER GB ONE ASSIST. INCONTINENT OF URINE AND BOWEL. C/O HEADACHE THIS SHIFT GAVE TYLENOL 2 TABS AT 1830 AND 1 TAB ULTRAM AT 2234 WITH RELIEF AND RESTED REST OF EVENING. TAKES MEDS CRUSHED IN APPLESAUCE. REMOVED IV DUE TO AREA BLEEDING OUT AND TENDERNESS. INCISION TO BACK OF HEAD AND LOWER ABDOMEN. LOWER ABDOMEN NOLAN TO COME OUT IN THE AM VIA PHYSICIAN. OPEN AREA TO BUTTOCKS PUT MOISTURE BARRIER AND ALOE ON IT. ATE 100% OF DINNER. CONTINUE TO WORK WITH THERAPY Follow up:
[2017-03-12 09:10] LABS: CPK 14 IU/L (21-215)
--- NOTE | 2017-03-12 12:33 | NUR ---
Significant Event: Patient alert but slow to respond. Delayed response. Needs cues for all tasks. Does communicate but with short answers. 2 assist pivot transfer. Incontinent. Meds crushed in applesauce. Has sutures to head that are intact. Casey to abodmen intact. EKG done today due to tachycardia. Showed sinus tach. Cardiac enzymes drawn with no new orders. Micro UA shows infection. IV Rocephin ordered.
--- NOTE | 2017-03-12 13:59 | NUR ---
D: TR progress note for 03/12/17. I: Pt seen for 2 units at 1003 for community integration skills building, functional transfers and safety awareness. R: Pt seen for functional skills building working on endurance, safety, transfers, and functional communication in anticipation for discharge back into community with spouse. Pt taken to [facility] by Therapies (OT/TR) to simulate community environment. Pt transferred sit > stand from max assist with max verbal and tactile cues along with extra time allotted for processing. Pt ambulated with walker down [facility] aisle 14 feet min > mod assist of x1, SBA another for safety and follower due to concerns for pt's safety. Pt needed max verbal and tactile cues to complete task with again extra time allotted with noted increase in body tremors as session progressed. Pt transferred back to and return to room with RN informed. Pt's mood bland >< bright with low initiation but did respond to questions asked with bright smile and good eye contact 75% of time if again extra time allotted. P: Will continue to see to address goals and plan of care.
--- NOTE | 2017-03-12 14:38 | NUR ---
[facility] Case Management Prefunctioning and Psycho-Social Initial Assessment for 03/03/17, Case Conference Note for 03/09/17 D: Initial Accounting ProfessorDental Sales Representative and Case Conference Note. I: Input from: patient, family, Dr. 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 Hx of glioblastoma status post radiation. Admission Date to [facility]: 03/03/17 Admission Date to Hospital: 02/26/17 Prior level of functioning: patient was independent with adl's and household. Used front wheeled walker for mobility. Was able to be home alone for brief periods of time. Prior living situation: multilevel house with . Financial resources/expectations: patient has BCBS. Resources used: none. Resources available: HHC, outpatient therapy, SNF, [facility], [facility], DME. 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 Behavior/Emotional needs: cues for safety. Monitor for signs and symptoms of depression and anxiety. Legal concerns: none Discharge goal: home with support of family. Assessment: Sheila is a 61 year old woman from [place] admitted after MEMORIAL MARKER DESIGNER shunt. Also, has hx of glioblastoma. She has good family support. Team conference was held and patient will require 24 hour assistance post discharge. Will work with them regarding d/c plan. Will follow. Orientation to the program and CM services completed with Sheila. Initial plan of care and estimated length of stay discussed, disclosure statement reviewed including patient assessment rights. P: Target date and individual goals established. Please see POC for details. For additional information please see Nursing Data Base, PT, OT, TR, ST, Initial assessments to [facility].
--- NOTE | 2017-03-13 04:34 | NUR ---
Alert and confused. Does not always answer questions when spoken to. Needs alot of queing to follow through with tasks. Is 2 assist pivot transfer with. Incontinent x 3 this shift. Takes meds crushed in applesauce, followed with sips of water. CT of head showed edema around tumor. Started on one dose IV, then oral Decadron every 6 hrs. Denied pain and slept well.
[2017-03-13 06:04] LABS: HEMOGLOBIN 10.2 g/dL (10.0-15.0); MCH 31.1 pg (27.0-34.0); MCHC 31.9 gm/dL (32.0-36.5); MCV 97.6 fl (83.0-98.0); MPV 8.5 fl (9.4-12.4); PLATELET COUNT 143 K/uL (150-450); RBC 3.28 M/uL (3.50-5.50); RDW-CV 15.9 % (11.9-14.6); WBC 8.2 K/uL (4.0-11.0)
[2017-03-13 06:28] LABS: ALBUMIN 2.8 gm/dL (3.5-5.0); ALK PHOS 71 IU/L (33-138); ALT 26 IU/L (12-78); AST 14 IU/L (10-40); BLOOD UREA NITROGEN 18 mg/dL (6-24); CALCIUM 8.9 mg/dL (8.5-10.5); CHLORIDE 108 mMol/L (96-110); CO2 24 mMol/L (22-32); CREATININE 0.6 mg/dL (0.5-1.1); SODIUM 142 mMol/L (135-145); TOTAL BILIRUBIN 0.6 mg/dL (0.0-1.5); TOTAL PROTEIN 6.5 g/dL (6.0-8.4)
[2017-03-13 07:11] LABS: ABSOLUTE NEUTROPHIL CT (ANC) 7.3 K/uL (1.8-7.8); BANDED NEUTROPHIL # 0.5 K/uL (0.0-0.1); BANDED NEUTROPHILS % 6 %; LYMPHOCYTE # 0.4 K/uL (0.8-4.0); LYMPHOCYTE % 5 %; MONOCYTE # 0.3 K/uL (0.0-1.0); SEGMENTED NEUTROPHIL # 6.8 K/uL (1.8-7.8); SEGMENTED NEUTROPHIL % 83 %
--- NOTE | 2017-03-13 14:48 | NUR ---
Significant Event: Patient alert but tires easily. Patient is slow to respond, delayed response and sometimes will just not answer. Needs cues for all tasks. Needs assistance with eating as she will fall asleep at times and needs cues to keep eating etc. Saline lock intact and continues on IV antibiotics. Is incontinent. wants to get her to the bathroom and measure urine every 6 hours and record in the progress notes. Crush meds and give in applesauce.
--- NOTE | 2017-03-14 03:50 | NUR ---
Significant Event:Two assist stand/transfer with gait belt and walker. Requires verbal and tactile cues with performing activities. Turned q 2-3 hrs. 3+ edema to lower legs/feet bilat, greater amt on left than right. Hands/fingers 2+ edema. Incisions to abd/rt side of head approx and healing, open to air. Saline lock to rt hand flushes, no blood return. Aloevesta applied to buttocks, reddened area to rt buttock cheek--skin intact. Tachy in low-mid 100's, sats 83-88% on room air. Dr Howe notified with order for O2 to titrate sats > 90%. Placed O2 at 2 L per NC, sats climb to 94% in 1-2 min, later sats rechecked and remain at 92%. Meds crushed and in applesauce. Remained continent, got pt up at 2245 but unable to void, had small soft goldbrown stool. Returns to bed and later was incontinent of large amt urine 2 hrs later; however pt unaware of need to void or alerting staff for toileting needs. Follow up: Toilet q 6 hrs on commode and chart in drs progress notes. Crush meds and place in applesauce. Needs verbal/tactile cues.
--- NOTE | 2017-03-14 17:14 | NUR ---
Significant Event: Patient alert but tires easily. Has slow response and delayed response. 2 assist. Used the commode twice today. She was incontinent with no void once and voided 350ml the other time. Edema to upper and lower extremities. Wears kendrick wraps to lower legs. Off at night. Saline lock intact and continues on IV antibitoics. Incisions open to air. Crush medications and give in applesauce. It is patient's birthday today so she had a republican with family in the dining room this afternoon. Follow up:
--- NOTE | 2017-03-15 03:52 | NUR ---
Significant Event: Slept after dinner for 3 hrs, then was awake watching tv. Had mod formed soft brown bm after suppository around 2199. Assisted to commode at that time, voided but had small incontinence. Lg urine incontinence at midnite, assisted to commode around 031 but when stood at bedside started voiding on floor--unable to get pt to move feet to maneuver to commode. Pt slow to respond and react with moving legs/feet at that time, no further void. Sats to 86-88% around 020, applied O2 at 1.5 L per NC with sats at 92%. Gave tylenol at 1916 for c/o headache that was effective. Meds crushed in applesauce. Incisions to rt side of head and lower abdomen approx/healed. Edema 3-4+ to feet/ankles, hands 2+. Have raised feet/used pillows. Follow up:Monitor need for O2 if sats < 90%, assist to commode q 6 hrs and chart in progress notes. Address large amt edema to feet/lower legs.
--- NOTE | 2017-03-15 11:19 | NUR ---
Significant Event: Patient alert but slow to respond and delayed response. Needs verbal cues for all tasks. Very slow to eat meals and take medications. Needs lots of cues to swallow food and to take a bite. Edema to upper and lower extremities. IV Saline lock with antibiotics for 5 days. Last dose Wednesday. Incisions are open to air. Patient is incontinent. 2 assist. Wears oxygen at night PRN as sats tend to drop when she sleeps. talked with patient's about the CT scan results from Wednesday and Pallative Care consult was ordered. Follow up:
--- NOTE | 2017-03-16 03:04 | NUR ---
Alert and oriented, but forgetful. Slow to respond at times. Talkative and pleasant this shift. Assists with repositioning in bed. Incontinent of both bowel and bladder. Pt is to be put on commode approx every 6 yrs and measure voiding if possible. This is to be put in progress notes of Dr Thornton. Will recieve last dose of IV antibiotic today. Takes meds crushed in applesauce without difficulty tonight. Hannah from pallative care and pts , Kermit will meet between 3:30 and 4:00 to discuss tx plan. Denied pain this shift. O2 sats have remained above 90%
--- NOTE | 2017-03-16 08:36 | NUR ---
PT SCREENED D/T LOS. INTAKE USUALLY 50-100%. WT DOWN 5# SINCE ADMIT TO [facility] ON 03/03; HOWEVER, PT HAS BEEN ON DIURETIC SO EXPECTED. PT STILL W/ 3+ EDEMA TO BLE. ENSURE ONCE DAILY. BASED ON DATA PT REMAINS NOT AT RISK. WILL ASSIST NEEDED.
--- NOTE | 2017-03-16 12:15 | NUR ---
D: TR progress note for 03/16/17. I: Pt seen for 2 units 930 for leisure education, coping strategies, fine motor skills, cognitive thinking and visual scanning. R: Pt seen for functional skills building working on leisure task for visual scanning, motor skills, cognitive thinking, and coping strategies to promote recovery and to increase independence with leisure activities. Pt started on new leisure task doing logic puzzles utilizing computer. Pt able to operate mouse without difficulty using RUE but needed min > mod cues for cognitive thinking to complete problem solving and strategzing along with visual scanning. Pt continues to need cues for attention to task but improved verbal initiation with bright affect and good sense of humor. P: Will continue to see to address goals and plan of care.
--- NOTE | 2017-03-16 14:21 | NUR ---
Significant Event: Pt up with 2 assist, to commode, tol. gomez. Pt and pt's will meet with Hannah with palliative care this afternoon. Pt's will also need to plan meeting with Dr Larson tomorrow at 8am or 1200. Pt takes meds crushed with applesauce. Decadron decreased today by Dr Hay. Pt slow with response, aphasic at times. Confusion at times. cooperative with cares. Follow up: activity, safety, meet with Dr Larson tomorrow
--- NOTE | 2017-03-17 03:19 | NUR ---
Significant Event: Patient is alert and disoriented, slow to respond at times. Up 2 assist with GB/Walker. Meds crushed with applesauce. Has been incontinent of B&B. She is to be taken to commode every 6 hrs and chart output in progress notes in chart. Was assisted to commode before bedtime and has been incontinent the rest of the shift. C/O of a headache was given Tylenol at 0315. IV ABX are complete now. Is to see Dr Larson today. O2 sats were >90% t/o the night. Follow up:
--- NOTE | 2017-03-17 17:19 | NUR ---
Significant Event: Pt up and amb to BR this afternoon with walker, 2 assist, alverto. fair, needs much verbal cueing and at times "freezes" and is unable to process what to do or how to move. Likewise will do this when taking meds at times, monitor carefully that pt is swallowing meds appropriately as she was holding the crushed med in her mouth and needed verbal cueing for swallowing. Pt did eat her meals well. Inc of urine x 3, Pt usually voids during transfer to toilet prior to getting on toilet. Pt denies pain. Follow up: possible chemo tomorow and transfer to [place], safety, activity, monitor skin for inc.
--- NOTE | 2017-03-18 02:34 | NUR ---
Significant Event:Alert to self. Slow to respond to questions and take action. Have several moments where she "freezes" and doesn't recall what she needs to do next or has forgotten what she was doing, even mid step. Requires extra cuing. 2 assist with gaitbelt and walker. Meds crushed in applesauce. needs additional cuing to swallow and not fill mouth full of water to where she can't swallow anything. Incision to right back of head and abdomen healed and open to air. Incontinent of bowel and bladder. Toilet Q6H or when feels the urge to void. VSS on room air. Repo Q3H. Encourage to repo self. Follow up:Chemo today and discharge to [facility].
--- NOTE | 2017-03-18 11:05 | NUR ---
Significant Event:Pt alert has alerternating moments of alertness, and orientation, has moments she was answering questions then like freezes, and requires multiple verbal cueing, very slow in processing intacke of what to do or how to move. Pt 2 assist, with walker, gait belt, uses commode or can walk into the BR depending on attention span. Cancer center to do treatment @ 1300, and they needed a UA, cath UA done approx. 1100 with 100 ml return, and pt incontinent large amt as returning pt to bed. Pt wears depends, and dressed to go. Dr Lake here checked abd, incision, and head incision, both healing, no dressings. Pt wears a cap to help keep her from itching head incision, need to remind her not to itch incisions. Meds are crushed and mixed with applesauce, pt seems to take best if takes a bite of andrew craker then tsp full of meds in applesauce, then another bite of craker, other cramer pt will pocket in her mouth and giving her water only she will still pocket it and sometimes will spit it out. Pt sometimes takes a while to start eating will sit for awhile before starts on meal, but eventually will feed self, again monitor for pocketing food in mouth. Pt usually voids during transfers, urine clear light yellow. We have been toileting pt every 6 hours, or when she feels the urge to void. Lung sounds clear, room air. Reposition every 3 hours, encourage pt to assist as much as possible. MOnitor Hemorrhoids, may have some bleeding with BM. MOisture Barrier ointment applied to buttocks, redness noted when has been sitting or laying forawhile. Skin dry, ointment applied. Pt has swelling lower extremities and upper extremities. Pt usually has flat affect, but can smile when visited with. Pt wears glasses, has her own teeth. Possessions will be packed and sent with pt to her chemo treatment, she will be discharged @ that time from inpt rehab. Then pt will go from chemo to [facility] for admission to their unit. Pt has been pleasant and cooperative with plan of care . Note discharge orders, per transfer packet that will be sent with pt. Follow up:
--- NOTE | 2017-03-18 14:08 | NUR ---
1400 Transport here to take pt for chemo treatment @ [facility]. Possessions packed, and loaded on cart. Transport x 2 assist took pt and possessions and transfer packet to [facility], when pt done with treatment [facility] will take pt to [facility], they plan to pick her up there approx. 1430. Pt assisted to WC with 2 assist, and taken per WC to [facility]. Pt discharged to care of transport team for transfer.
--- NOTE | 2017-03-22 09:36 | NUR ---
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 Anticipated discharge disposition: [facility]. Education completed: Education was completed regarding options, etc. Assessment/Recommendation: Team recommends d/c. 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 Has a hx of glioblastoma. Patient will d/c to [facility] under skilled care on 03/18/17. ID screen completed. Will call to see how patient is doing next week.
== END 2017-03-18 14:00 | DRG 93 ==
LOC: GIRP 11:01
PROVIDERS: Internal Medicine; ADMIT Physical Medicine & Rehabilitation
DX: R26.81 Unsteadiness on feet (principal); E66.01 Morbid (severe) obesity due to excess calories; Z74.3 Need for continuous supervision; R41.0 Disorientation, unspecified; F32.9 Major depressive disorder, single episode, unspecified; K21.9 Gastro-esophageal reflux disease without esophagitis; R32 Unspecified urinary incontinence; R15.9 Full incontinence of feces; Z51.5 Encounter for palliative care; Z88.8 Allergy status to other drugs, medicaments and biological substances; M19.90 Unspecified osteoarthritis, unspecified site; Z68.39 Body mass index [BMI] 39.0-39.9, adult; Z79.01 Long term (current) use of anticoagulants
CPT/HCPCS: J0696; J1100; J1644; J7040; J7050